=== PATIENT | female | born 1940 | race Caucasian/White ===

== ENCOUNTER 2017-05-20 08:47 | Outpatient (CLI) | payer MEDICARE ==
--- NOTE | 2017-05-20 11:09 | CT ---
CT OF THE ABDOMEN WITH AND WITHOUT IV CONTRAST: INDICATION: Adrenal mass. TECHNIQUE: Noncontrast and postcontrast images were obtained of the abdomen. The postcontrast images were obtai francisco at the 60-second time devendra and with a 15-minute delay. COMPARISON: None. FINDINGS: There is a 1.5 cm nodule involving the right adrenal gland that demonstrates an absolute washout of 7 3.4% and relative washout of 59.1% is consistent with an adrenal adenoma. The left adrenal gland is normal-appearing. There are moderate calcifications noted involving the abdominal aorta. The pancreas and spleen appea r within normal limits. The gallbladder is surgically absent. There is mild intrahepatic and extrah epatic biliary ductal dilatation. No free fluid is evident. There is scattered degenerative and osteoarthritic change. IMPRESSION: 1. The nodule involving the right adrenal gland is consistent with an adrenal adenoma based on the w ashout criteria. 2. Cholecystectomy. POS: [facility]
[2017-05-20] MEDS ORDERED: Iopamidol 370 76% 100 ML VIAL ONE (17:25)
== END 2017-05-20 08:48 | disposition home or self-care (01) ==
LOC: CT 08:47
PROVIDERS: ATTEND Family Medicine
DX: E27.9 Disorder of adrenal gland, unspecified (principal); Z90.49 Acquired absence of other specified parts of digestive tract
CPT/HCPCS: 74170

== ENCOUNTER 2017-07-15 09:18 | Outpatient (CLI) | payer MEDICARE ==
--- NOTE | 2017-07-15 11:32 | ULT ---
HEPATIC ULTRASOUND WITH DOPPLER: Date: 07/15/17 HISTORY: Hepatitis C. FINDINGS: The liver measures 16.4 cm in length. The spleen measures 9.5 cm in length. The patient is status pos t cholecystectomy. The common duct measures 9.0 mm in diameter. The liver demonstrates homogeneous echotexture without focal mass or intrahepatic ductal dilatation. Spleen and visualized portions of the pancreas are unremarkable. Flow and spectral waveforms in the h epatic, portal, and splenic vasculature are within normal limits. No free fluid is seen. IMPRESSION: No evidence of hepatic mass. POS: [facility]
== END 2017-07-15 09:19 | disposition home or self-care (01) ==
LOC: ULT 09:18
PROVIDERS: ATTEND Internal Medicine Gastroenterology
DX: B18.2 Chronic viral hepatitis C (principal)
CPT/HCPCS: 76705

== ENCOUNTER 2018-06-21 12:20 | Outpatient (CLI) | payer MEDICARE ==
--- NOTE | 2018-06-21 14:18 | CT ---
CT LUMBAR SPINE WITHOUT CONTRAST: HISTORY: Lumbar radiculopathy. Symptoms x 6 months. Worsening over the last 2 months. Low back pain radiates to both lower extremi ties. COMPARISON: None. CORRELATION: Abdomen and pelvic CT 05/20/2017. FINDINGS: Redemonstration of previously described adenoma of the right adrenal gland. Visualized solid organs are unremarkable. Atherosclerosis of a nonaneurysmal aorta. Symmetric attenuation of the psoas musc les. Bowel gas pattern is nonspecific. Normal caliber appendix. There is sclerosis involving the inferior aspect of T12, superior aspect of L1, inferior aspect of L1 , superior endplate of L2, inferior aspect of L5, and the superior aspect of S1 suggesting Modic goodman ges. Lumbar spine vertebral body height is maintained. There is no fracture. There is 2.2 mm of re trolisthesis of L1 upon L2, 2.2 mm of retrolisthesis of L2 upon L3. Limited evaluation of the contents of the central spinal canal and neural foramina due to technique. T12-L1: Broad-based disk bulge results in at least mild to moderate central canal stenosis. There d oes appear to be a right subarticular component. Mild bilateral foraminal narrowing. L1-L2: Vacuum-disk phenomenon. No high-grade central canal stenosis. Mild bilateral foraminal narr owing. L2-L3: Vacuum disk phenomenon. Generalized disk bulge results in at least mild central canal stenos is. Neural foramina are patent. L3-L4: Generalized disk bulge, ligamentum flavum thickening, and facet hypertrophy result in mild ce ntral canal stenosis. Moderate right and mild to moderate left foraminal narrowing. L4-L5: There does appear to be a component of vacuum disk phenomenon. Broad-based disk bulge, ligam entum flavum thickening, and facet hypertrophy result in moderate central canal stenosis. There is n arrowing of the left subarticular zone with presumed mass effect and obscuration of the traversing le ft L5 nerve root. Mild right and moderate left foraminal narrowing. L5-S1: There is vacuum disk phenomenon. Generalized disk bulge with at least mild central canal tien nosis. Moderate to severe right and moderate left foraminal narrowing. IMPRESSION: 1. No evidence of an acute fracture. 2. Multilevel Modic change. 3. Varying degrees of central canal stenosis and foraminal narrowing as detailed above. The greates t degree of central canal stenosis is at the L4-L5 level. Additional significant stenosis I noted at L3-L4. POS: [facility]
== END 2018-06-21 12:21 | disposition home or self-care (01) ==
LOC: BICCT 12:20
PROVIDERS: ATTEND Orthopaedic Surgery
DX: M54.16 Radiculopathy, lumbar region (principal); M48.061 Spinal stenosis, lumbar region without neurogenic claudication
CPT/HCPCS: 72131

== ENCOUNTER 2018-07-19 10:29 | Outpatient (CLI) | payer MEDICARE ==
[2018-07-19] MEDS ORDERED: Iopamidol 370 76% 100 ML VIAL ONE (11:28)
--- NOTE | 2018-07-19 13:34 | CT ---
CT ABDOMEN WITH AND WITHOUT IV CONTRAST: DATE: 07/19/2018. HISTORY: Adrenal mass. Followup evaluation. COMPARISON: 05/20/2017. FINDINGS: Cardiac pacemaking leads are again partially imaged. Dense vascular calcifications are again seen in the abdominal aorta involving the iliac arteries. There is dependent atelectasis bilaterally. Post cholecystectomy changes are again noted with evidence of intra- and extrahepatic biliary ductal dilatation likely related to reservoir effect. The liver is again at the upper limits of normal in c raniocaudal dimensions. Previously noted 1.5 cm right adrenal nodule is again seen and unchanged in size. Washout characteri stics of this right adrenal lesion are again compatible with an adrenal adenoma. An absolute washout percentage of 62.7% was obtained, and 60% or higher is consistent with an adenoma. The relative was hout is 46.5%, and washout of greater than 40% is consistent with an adenoma. The spleen, pancreas, and left adrenal gland demonstrate a normal CT appearance. Areas of mild corti lindy scarring are seen involving each kidney. No enhancing renal lesion is identified. Multiple prominent degenerative changes are seen within the visualized thoracic as well as involving the lumbar spine. Colonic diverticulosis is present with a small amount of retained fecal material in the colon. There has been no other interval change. IMPRESSION: 1. Stable right adrenal gland lesion demonstrating washout characteristics most compatible with an a drenal adenoma. 2. Post cholecystectomy changes. 3. Mild cortical scarring involving each kidney. 4. Dense atherosclerotic vascular calcifications. 5. Colonic diverticulosis. POS: [facility]
== END 2018-07-19 10:30 | disposition home or self-care (01) ==
LOC: CT 10:29
PROVIDERS: ATTEND Urology
DX: E27.9 Disorder of adrenal gland, unspecified (principal); K57.30 Diverticulosis of large intestine without perforation or abscess without bleeding; I70.8 Atherosclerosis of other arteries; N28.89 Other specified disorders of kidney and ureter; Z90.49 Acquired absence of other specified parts of digestive tract
CPT/HCPCS: 74170; 82565; Q9967

== ENCOUNTER 2020-06-21 02:26 | Inpatient (IN) | payer MEDICARE ==
[2020-06-21] MEDS ORDERED: Dexamethasone 10 MG/ML VIAL ONE (03:06)
[2020-06-21] MEDS ORDERED: cefTRIAXone\\ROCEPHIN 2 GM VIAL ONE (03:06)
[2020-06-21] MEDS ORDERED: Azithromycin 500 MG VIAL ONE (03:06)
[2020-06-21 03:49] LABS: #Eosinphils 0.1 thou/uL (0.0-0.7); #Lymphocytes 0.5 thou/uL (1.20-3.40); #Monocytes 0.4 thou/uL (0.11-0.59); #Neutrophils 3.2 thou/uL (1.40-6.50); %Basophils 0.3 % (0.0-1.0); %Eosinophils 1.2 % (0.0-10.0); %Lymphocytes 12.9 % (21.0-51.0); %Monocytes 9.1 % (0.0-10.0); %Neutrophils 76.4 % (42.0-75.0); Hemoglobin 12.3 g/dL (12.0-16.0); Mean Corpuscular HGB CONC 35.6 g/dL (32.0-36.0); Mean Corpuscular Hemoglobin 32.3 pg (27.0-31.0); Mean Corpuscular Volume 90.7 fL (78.0-98.0); Mean Platelet Volume 7.9 fL (7.4-10.4); Platelet Count 166 thou/uL (130-400); RBC Distribution Width 11.8 % (11.5-14.5); Red Blood Cell (RBC) Count 3.79 mill/uL (4.20-5.40); White Blood Cell (WBC) Count 4.2 thou/uL (4.8-10.8)
[2020-06-21 03:56] LABS: ALT (SGPT) 26 U/L (8-55); AST (SGOT) 21 U/L (5-34); Albumin 3.6 g/dL (3.4-4.8); Alkaline Phosphatase 69 U/L (40-110); Anion Gap 13 mmol/L (10-20); BUN (Urea Nitrogen) 16 mg/dL (9.8-20.1); Bilirubin, Total 0.5 mg/dL (0.2-1.2); Calc. Creatinine Clearance 0 mL/min (70-130); Calcium 8.3 mg/dL (7.8-10.44); Carbon Dioxide 25 mmol/L (23-31); Chloride 100 mmol/L (98-107); Globulin 2.7 g/dL (2.4-3.5); Glucose 115 mg/dL (83-110); Potassium 3.8 mmol/L (3.5-5.1); Protein, Total 6.3 g/dL (6.0-8.3); Sodium 134 mmol/L (136-145)
[2020-06-21 07:44] VITALS: BMI 25.3
[2020-06-21] MEDS ORDERED: Ondansetron PF 4 MG/2 ML Vial IVP PRN (09:05)
[2020-06-21] MEDS ORDERED: Ondansetron ODT 4 MG TAB PO PRN (09:05)
[2020-06-21] MEDS ORDERED: Cholecalciferol 1,000 UNITS (25 MCG) TAB PO SCH (09:15)
[2020-06-21] MEDS ORDERED: Ascorbic Acid 500 mg Chewable Tablet PO SCH (09:15)
[2020-06-21] MEDS ORDERED: Enoxaparin Sodium 40 MG/0.4 ML SYRINGE SC SCH (21:00)
[2020-06-22] MEDS: Acetaminophen 325 MG TAB PO PRN ×4 (05:39→22:55)
[2020-06-22 06:34] LABS: #Basophils 0.1 thou/uL (0.0-0.2); #Lymphocytes 0.7 thou/uL (1.20-3.40); #Monocytes 0.4 thou/uL (0.11-0.59); #Neutrophils 7.3 thou/uL (1.40-6.50); %Basophils 0.6 % (0.0-1.0); %Eosinophils 0.1 % (0.0-10.0); %Monocytes 4.7 % (0.0-10.0); %Neutrophils 86.6 % (42.0-75.0); Hemoglobin 12.2 g/dL (12.0-16.0); Mean Corpuscular HGB CONC 35.3 g/dL (32.0-36.0); Mean Corpuscular Hemoglobin 32.4 pg (27.0-31.0); Mean Corpuscular Volume 91.7 fL (78.0-98.0); Mean Platelet Volume 7.7 fL (7.4-10.4); Platelet Count 194 thou/uL (130-400); RBC Distribution Width 11.5 % (11.5-14.5); Red Blood Cell (RBC) Count 3.78 mill/uL (4.20-5.40); White Blood Cell (WBC) Count 8.5 thou/uL (4.8-10.8)
[2020-06-22 06:55] LABS: Anion Gap 12 mmol/L (10-20); BUN (Urea Nitrogen) 14 mg/dL (9.8-20.1); Calc. Creatinine Clearance 83 mL/min (70-130); Calcium 8.2 mg/dL (7.8-10.44); Carbon Dioxide 26 mmol/L (23-31); Chloride 101 mmol/L (98-107); Glucose 107 mg/dL (83-110); Potassium 3.9 mmol/L (3.5-5.1); Sodium 135 mmol/L (136-145)
[2020-06-22] MEDS ORDERED: Bisacodyl 10 MG SUPP PR PRN (07:57)
[2020-06-22] MEDS ORDERED: Loperamide HCl 2 MG CAP PO PRN (07:57)
[2020-06-22] MEDS ORDERED: HYDROcodone/Acetaminophen 5/325 mg Tablet PO PRN (07:57)
[2020-06-22] MEDS ORDERED: Loratadine 10 MG TAB PO PRN (07:57)
[2020-06-22] MEDS ORDERED: Zolpidem Tartrate 5 MG TAB PO PRN (07:57)
[2020-06-22] MEDS ORDERED: Cepastat Lozenges 1 LOZ PO PRN (07:57)
[2020-06-22] MEDS ORDERED: Calcium Carbonate 500 MG ChewTAB PO PRN (07:57)
[2020-06-22] MEDS ORDERED: Benzonatate 100 MG CAP PO PRN (07:57)
[2020-06-22] MEDS ORDERED: GUAIFENESIN SF SOLN 200 MG/10 ML UDCUP PO PRN (07:57)
[2020-06-22] MEDS ORDERED: Senokot S 8.6-50 MG TAB PO PRN (07:57)
[2020-06-22] MEDS ORDERED: hydrALAZINE 20 MG/ML VIAL SLOW IVP PRN (07:57)
[2020-06-22] MEDS ORDERED: Sodium Chloride 0.65% Nasal 44 ML BOT EA NARE PRN (07:57)
[2020-06-22] MEDS: Amlodipine 10 MG TAB PO SCH (08:47)
[2020-06-22] MEDS: Ascorbic Acid 500 mg Chewable Tablet PO SCH (08:47)
[2020-06-22] MEDS: Aspirin 81 mg Enteric Coated Tablet PO SCH (08:47)
[2020-06-22] MEDS: Cholecalciferol 1,000 UNITS (25 MCG) TAB PO SCH (08:48)
[2020-06-22] MEDS: Enoxaparin Sodium 40 MG/0.4 ML SYRINGE SC SCH (08:48)
[2020-06-22] MEDS: Dexamethasone 4 mg/ml Vial SLOW IVP SCH (08:48)
[2020-06-22] MEDS: Lisinopril 20 MG TAB PO SCH (08:48)
[2020-06-22] MEDS: PARoxetine 20 MG TAB PO SCH (08:48)
[2020-06-22] MEDS ORDERED: Lisinopril 20 MG TAB PO SCH (09:00)
[2020-06-22] MEDS: cefTRIAXone\\ROCEPHIN 1 GM in Sodium Chloride 0.9% 100 ML IVPB SCH (12:11)
[2020-06-22] MEDS: Azithromycin 500 MG in Sodium Chloride 0.9% 250 ML 250 ML IVPB SCH (12:12)
[2020-06-23] MEDS: Acetaminophen 325 MG TAB PO PRN (06:08)
[2020-06-23 06:27] LABS: #Lymphocytes 0.6 thou/uL (1.20-3.40); #Monocytes 0.4 thou/uL (0.11-0.59); %Eosinophils 0.1 % (0.0-10.0); %Lymphocytes 6.6 % (21.0-51.0); %Monocytes 3.9 % (0.0-10.0); %Neutrophils 89.5 % (42.0-75.0); Hemoglobin 11.6 g/dL (12.0-16.0); Mean Corpuscular HGB CONC 34.1 g/dL (32.0-36.0); Mean Corpuscular Hemoglobin 30.9 pg (27.0-31.0); Mean Corpuscular Volume 90.7 fL (78.0-98.0); Mean Platelet Volume 7.8 fL (7.4-10.4); Platelet Count 219 thou/uL (130-400); RBC Distribution Width 11.5 % (11.5-14.5); Red Blood Cell (RBC) Count 3.76 mill/uL (4.20-5.40); White Blood Cell (WBC) Count 8.9 thou/uL (4.8-10.8)
[2020-06-23 06:52] LABS: Anion Gap 13 mmol/L (10-20); BUN (Urea Nitrogen) 14 mg/dL (9.8-20.1); CRP (Inflammatory) 3.92 mg/dL (= or < 0.5); Calc. Creatinine Clearance 84 mL/min (70-130); Calcium 8.6 mg/dL (7.8-10.44); Carbon Dioxide 28 mmol/L (23-31); Chloride 101 mmol/L (98-107); Glucose 119 mg/dL (83-110); Potassium 3.9 mmol/L (3.5-5.1); Sodium 138 mmol/L (136-145)
[2020-06-23] MEDS: Enoxaparin Sodium 40 MG/0.4 ML SYRINGE SC SCH (07:55)
[2020-06-23] MEDS: Dexamethasone 4 mg/ml Vial SLOW IVP SCH (07:55)
[2020-06-23] MEDS: Aspirin 81 mg Enteric Coated Tablet PO SCH (07:55)
[2020-06-23] MEDS: Cholecalciferol 1,000 UNITS (25 MCG) TAB PO SCH (07:56)
[2020-06-23] MEDS: Ascorbic Acid 500 mg Chewable Tablet PO SCH (07:56)
[2020-06-23] MEDS: Lisinopril 20 MG TAB PO SCH (07:56)
[2020-06-23] MEDS: PARoxetine 20 MG TAB PO SCH (07:56)
[2020-06-23] MEDS: Amlodipine 10 MG TAB PO SCH (07:57)
[2020-06-23] MEDS: cefTRIAXone\\ROCEPHIN 1 GM in Sodium Chloride 0.9% 100 ML IVPB SCH (10:00)
[2020-06-23] MEDS: Azithromycin 500 MG in Sodium Chloride 0.9% 250 ML 250 ML IVPB SCH (10:00)
[2020-06-23 12:07] VITALS: BP 126/60; TEMP 98.9
[2020-06-24] MEDS ORDERED: Azithromycin 250 MG TAB PO SCH (09:00)
== END 2020-06-23 16:18 | disposition home or self-care (01) | DRG 177 ==
LOC: ERS 02:26 → T4-A 06:00
PROVIDERS: ADMIT Internal Medicine; ATTEND Internal Medicine
PROC: 8E0ZXY6 Isolation (ICD-10-PCS; principal; 2020-06-21)
DX: U07.1 COVID-19 (principal); J96.01 Acute respiratory failure with hypoxia; J12.82 Pneumonia due to coronavirus disease 2019; I48.91 Unspecified atrial fibrillation; F41.9 Anxiety disorder, unspecified; F32.9 Major depressive disorder, single episode, unspecified; I10 Essential (primary) hypertension; Z95.0 Presence of cardiac pacemaker; Z90.49 Acquired absence of other specified parts of digestive tract; Z79.899 Other long term (current) drug therapy; Z79.82 Long term (current) use of aspirin; Z86.19 Personal history of other infectious and parasitic diseases
CPT/HCPCS: 36415; 71045; 71275; 80048; 80053; 82728; 84484; 85025; 85379; 86140; 87040; 93005; 96365; 96366; 96367; 96375; J0456; J0696; J1100; J1650; J3490; J7050

== ENCOUNTER 2020-07-03 19:12 | Inpatient (IN) | payer MEDICARE ==
[2020-07-03 19:42] LABS: #Eosinphils 0.1 thou/uL (0.0-0.7); #Lymphocytes 1.2 thou/uL (1.20-3.40); #Monocytes 0.9 thou/uL (0.11-0.59); #Neutrophils 8.7 thou/uL (1.40-6.50); %Basophils 0.1 % (0.0-1.0); %Eosinophils 1.3 % (0.0-10.0); %Lymphocytes 10.9 % (21.0-51.0); %Monocytes 8.1 % (0.0-10.0); %Neutrophils 79.6 % (42.0-75.0); Hemoglobin 10.7 g/dL (12.0-16.0); Mean Corpuscular Hemoglobin 30.7 pg (27.0-31.0); Mean Corpuscular Volume 90.1 fL (78.0-98.0); Mean Platelet Volume 6.7 fL (7.4-10.4); Platelet Count 355 thou/uL (130-400); RBC Distribution Width 11.8 % (11.5-14.5); Red Blood Cell (RBC) Count 3.48 mill/uL (4.20-5.40)
[2020-07-03 19:55] LABS: ALT (SGPT) 14 U/L (8-55); AST (SGOT) 16 U/L (5-34); Albumin 3.3 g/dL (3.4-4.8); Alkaline Phosphatase 55 U/L (40-110); Anion Gap 14 mmol/L (10-20); BUN (Urea Nitrogen) 11 mg/dL (9.8-20.1); Bilirubin, Total 0.3 mg/dL (0.2-1.2); Calc. Creatinine Clearance 0 mL/min (70-130); Calcium 8.2 mg/dL (7.8-10.44); Carbon Dioxide 21 mmol/L (23-31); Globulin 3.2 g/dL (2.4-3.5); Glucose 98 mg/dL (83-110); Potassium 3.5 mmol/L (3.5-5.1); Protein, Total 6.5 g/dL (5.8-8.1)
--- NOTE | 2020-07-03 19:57 | RAD ---
PORTABLE CHEST: 07/03/20 INDICATIONS: Hypoxia. COMPARISON: 06/21/20. There are diffuse peripheral alveolar infiltrates which have progressed when compared to the 06/21/20 exam. There are small bilateral effusions. There are hazy infiltrates throughout both mid and lower l abdiaziz alexandra. Mild vascular engorgement. Pacemaker leads again noted. IMPRESSION: Progression of bilateral infiltrates and small bilateral effusions when compared to the prior study. POS: [facility]
[2020-07-03 19:59] LABS: Chloride 103 mmol/L (98-107); Sodium 134 mmol/L (136-145)
[2020-07-03] MEDS ORDERED: Ibuprofen 200 MG TAB ONE (20:18)
[2020-07-03] MEDS ORDERED: cefTRIAXone\\ROCEPHIN 2 GM VIAL ONE (20:18)
[2020-07-03] MEDS ORDERED: Azithromycin 500 MG VIAL ONE (20:18)
[2020-07-03] MEDS ORDERED: Dexamethasone 10 MG/ML VIAL ONE (20:18)
[2020-07-03] MEDS ORDERED: Ondansetron PF 4 MG/2 ML Vial ONE (21:59)
--- NOTE | 2020-07-03 22:20 | PDOC.HHP ---
Hospitalist HPI Shortness of breath History of Present Illness: Patient is a 79 year old female with PMH afib, pacemaker, depression, HCV (treated) who presents to ED for shortness of breath. Patient was diagnosed with COVID 3 weeks ago on 06/12, was admitted from 06/21-06/23 and did not really improve at home, reports she was short of breath today and increased o2 to 4L from 2, still low O2 and presented for further workup. here desatting on NC and placed on HFNC but now back to 6L NC. Chest x-ray shows worsening bilateral infiltra mirian. No leukocytosis. No lactic acidosis. Increasing oxygen requirement. Was given antibiotics, steroids. Will be admitted. Allergies/Adverse Reactions: Allergy/AdvReac Type Severity Reaction Status Date / Time No Known Allergies Allergy Verified 07/04/20 01:12 Home Medications: Medication Instructions Recorded Confirmed Type Amlodipine Besylate [amLODIPine 10 mg PO DAILY 05/08/14 07/04/20 History Besylate] Ascorbic Acid [Vitamin C] 500 mg PO DAILY 05/08/14 07/04/20 History Aspirin [Adult Low Dose Aspirin EC] 81 mg PO DAILY 05/08/14 07/04/20 History Fish Oil 1,000 mg PO DAILY 05/08/14 07/04/20 History Glucosamine/D3/Boswellia Elma 1 tab PO DAILY 05/08/14 07/04/20 History [Osteo Bi-Flex One Per Day] Lisinopril 40 mg PO DAILY 05/08/14 07/04/20 History PARoxetine HCl [Paxil] 20 mg PO DAILY 05/08/14 07/04/20 History Benzonatate [Tessalon] 100 mg PO Q6H PRN #30 cap 06/23/20 07/04/20 Rx Cholecalciferol [Vitamin D3] 1,000 units PO DAILY #14 tab 06/23/20 07/04/20 Rx Dexamethasone 6 mg PO DAILY #7 tablet 06/23/20 07/04/20 Rx Pantoprazole [Protonix] 40 mg PO DAILY #7 tab 06/23/20 07/04/20 Rx Past History: PMHx: HTN, HCV (treated), atrial fibrillation, pacemaker PSHx: defibrillator/pacemaker implanted due to afib which is now controlled, cholecystectomy, right shoulder and left knee surgery (not replacement). FHx: reviewed, no relevant FH Social: Patient drinks every day, less than 5 drinks per day, Alcohol history notes: beer, Patient denies drug use, Patient has no smoking history. Hospitalist HPI ROS Constitutional: reports: weakness, malaise. denies: fever, chills, sweats, other Eyes: denies: pain, vision change, conjunctivae inflammation, eyelid inflammation, redness, other ENT: denies: ear pain, ear discharge, nose pain, nose discharge, nose co ngestion, mouth pain, mouth swelling, throat pain, throat swelling, other Respiratory: reports: cough, shortness of breath. denies: dry, hemoptysis, SOB with excertion, pleuritic pain, sputum, wheezing, other Cardiovascular: denies: chest pain, palpitations, orthopnea, paroxysmal noc. dyspnea, edema, light headedness, other Gastrointestinal: reports: nausea, vomiting. denies: abdominal pain, diarrhea, constipation, melena, hematochezia, other Genitourinary: denies: dysuria, frequency, incontinence, hematuria, retention, other Musculoskeletal: denies: neck pain, shoulder pain, arm pain, back pain, hand pain, leg pain, foot pain, other Skin: denies: rash, lesions, hudson, bruising, other Neurological: denies: weakness, numbness, incoordination, change in speech, confusion, seizures, other All other systems reviewed; all pertinent +/- noted in HPI/Subj Hospitalist Exam General Appearance: NAD, awake alert Eye: PERRL, anicteric sclera ENT: normocephalic atraumatic, no oropharyngeal lesions, moist mucosa Neck: supple, symmetric, no JVD, no thyromegaly, no lymphadenopathy, no carotid bruit Heart: RRR, no murmur, no gallops, no rubs, normal peripheral pulses Respiratory: rales. negative: CTAB, no wheezes, no rales, no ronchi, normal chest expansion, no tachypnea, normal percussion, rhonchi, tachypneic, wheezes Gastrointestinal: soft, non-tender, non-distended, normal bowel sounds, no palpable masses, no hepatomegaly, no splenomegaly, no bruit Extremities: no cyanosis, no clubbing, no edema Skin: normal turgor, no lesions, no rashes Neurological: cranial nerve grossly intact, normal sensation to touch, no weakness, no focal deficits, no new deficit Musculoskeletal: normal tone, normal strength, no muscle wasting Psychiatric: normal affect, normal behavior, A&O x 3 Hospitalist Results Result Diagrams: 07/03/20 19:32 07/03/20 19:32 Lab results: Laboratory Last Values WBC 11.0 thou/uL (4.8-10.8) H 07/03/20 19: RBC 3.48 mill/uL (4.20-5.40) L 07/03/20 19: Hgb 10.7 g/dL (12.0-16.0) L 07/03/20 19: Hct 31.3 % (36.0-47.0) L 07/03/20 19: MCV 90.1 fL (78.0-98.0) 07/03/20 19: MCH 30.7 pg (27.0-31.0) 07/03/20 19: MCHC 34.0 g/dL (32.0-36.0) 07/03/20 19: RDW 11.8 % (11.5-14.5) 07/03/20 19: Plt Count 355 thou/uL (130-400) 07/03/20 19: MPV 6.7 fL (7.4-10.4) L 07/03/20 19:32 Neutrophils % 79.6 % (42.0-75.0) H 07/03/20 19: Lymphocytes % 10.9 % (21.0-51.0) L 07/03/20 19: Monocytes % 8.1 % (0.0-10.0) 07/03/20 19: Eosinophils % 1.3 % (0.0-10.0) 07/03/20 19: Basophils % 0.1 % (0.0-1.0) 07/03/20 19: Neutrophils # 8.7 thou/uL (1.40-6.50) H 07/03/20 19: Lymphocytes # 1.2 thou/uL (1.20-3.40) 07/03/20 19: Monocytes # 0.9 thou/uL (0.11-0.59) H 01/28/21 19:32 Eosinophils # 0.1 thou/uL (0.0-0.7) 07/03/20 19:32 Basophils # 0.0 thou/uL (0.0-0.2) 07/03/20 19:32 Sodium 134 mmol/L (136-145) L 07/03/20 19:32 Potassium 3.5 mmol/L (3.5-5.1) 07/03/20 19:32 Chloride 103 mmol/L (98-107) 07/03/20 19:32 Carbon Dioxide 21 mmol/L (23-31) L 07/03/20 19:32 Anion Gap 14 mmol/L (10-20) 07/03/20 19:32 BUN 11 mg/dL (9.8-20.1) 07/03/20 19:32 Creatinine 0.68 mg/dL (0.6-1.1) 07/03/20 19:32 Estimated GFR (MDRD) 84 07/03/20 19:32 Glucose 98 mg/dL (83-110) 07/03/20 19:32 Lactic Acid 0.7 mmol/L (0.5-2.2) 07/03/20 19:48 Calcium 8.2 mg/dL (7.8-10.44) 07/03/20 19:32 Total Bilirubin 0.3 mg/dL (0.2-1.2) 07/03/20 19:32 AST 16 U/L (5-34) 07/03/20 19:32 ALT 14 U/L (8-55) 07/03/20 19:32 Alkaline Phosphatase 55 U/L (40-110) 07/03/20 19:32 Troponin I 0.013 ng/mL (< 0.028) 07/03/20 19:32 Serum Total Protein 6.5 g/dL (5.8-8.1) 07/03/20 19:32 Albumin 3.3 g/dL (3.4-4.8) L 07/03/20 19:32 Globulin 3.2 g/dL (2.4-3.5) 07/03/20 19:32 Albumin/Globulin Ratio 1.0 g/dL (1.2-2.2) L 07/03/20 19:32 Additional comment: EKG 83 bpm, NSR, MI 208, QTc 465, no acute ST changes Hospitalist H&P A/P Plan: Patient is a 79 year old female with PMH afib, pacemaker, depression, HCV (treated) who presents to ED for shortness of breath. # COVID 19 pneumonia # worsening hypoxia Patient was diagnosed with COVID 3 weeks ago on 06/12, was admitted from 06/21-06/23 and did not really improve at home, reports she was short of breath today, now requiring 6L NC (on 2L assisted at home). Chest x-ray shows worsening bilateral infiltrates. No leukocytosis. No lactic acidosis. Increasing oxygen requirement. Was given antibiotics, steroids. - admit to floor - continue abx, steroids - consider pulmonary consult in AM - PT/OT # reduced PO intake - reports due to nausea, improved w/ zofran, consult dietary and add ensure # history of afib/pacemaker - resume home medications # depression - resume home meds # DVT/GI ppx
[2020-07-03] MEDS ORDERED: Electrolyte Replacement Protocol 1 EACH FS SCH (23:45)
[2020-07-03] MEDS ORDERED: Morphine 2 MG/ML VIAL SLOW IVP PRN (23:46)
[2020-07-03] MEDS ORDERED: Promethazine HCl 12.5 MG in Sodium Chloride 0.9% 50 ML IVPB PRN (23:46)
[2020-07-03] MEDS ORDERED: cloNIDine 0.1 MG TAB PO PRN (23:46)
[2020-07-03] MEDS ORDERED: Labetalol HCl 100 MG/20 ML VIAL SLOW IVP PRN (23:46)
[2020-07-03] MEDS ORDERED: Guaifenesin DM 100-10/5 ML UDCUP PO PRN (23:46)
[2020-07-03] MEDS ORDERED: hydrALAZINE 20 MG/ML VIAL SLOW IVP PRN (23:46)
[2020-07-03] MEDS ORDERED: Benzonatate 100 MG CAP PO PRN (23:48)
[2020-07-04] MEDS ORDERED: Albuterol 200 PUFF (6.7GM INHALER) INH PRN (00:20)
[2020-07-04] MEDS ORDERED: Electrolyte Replacement Protocol FS PRN (00:30)
[2020-07-04 00:33] VITALS: BMI 24.9
[2020-07-04] MEDS: HYDROcodone/Acetaminophen 5/325 mg Tablet PO PRN ×2 (01:49→11:41)
[2020-07-04 06:25] LABS: #Lymphocytes 0.5 thou/uL (1.20-3.40); #Monocytes 0.1 thou/uL (0.11-0.59); #Neutrophils 4.9 thou/uL (1.40-6.50); %Eosinophils 0.4 % (0.0-10.0); %Lymphocytes 8.4 % (21.0-51.0); %Monocytes 1.6 % (0.0-10.0); %Neutrophils 89.7 % (42.0-75.0); Hemoglobin 10.6 g/dL (12.0-16.0); Mean Corpuscular HGB CONC 33.3 g/dL (32.0-36.0); Mean Corpuscular Hemoglobin 30.2 pg (27.0-31.0); Mean Corpuscular Volume 90.6 fL (78.0-98.0); Platelet Count 386 thou/uL (130-400); RBC Distribution Width 11.8 % (11.5-14.5); Red Blood Cell (RBC) Count 3.51 mill/uL (4.20-5.40); White Blood Cell (WBC) Count 5.5 thou/uL (4.8-10.8)
[2020-07-04 06:45] LABS: Anion Gap 12 mmol/L (10-20); BUN (Urea Nitrogen) 10 mg/dL (9.8-20.1); Calc. Creatinine Clearance 78 mL/min (70-130); Calcium 8.6 mg/dL (7.8-10.44); Carbon Dioxide 25 mmol/L (23-31); Chloride 104 mmol/L (98-107); Glucose 184 mg/dL (83-110); Magnesium 1.9 mg/dL (1.6-2.6); Phosphorus 2.8 mg/dL (2.3-4.7); Potassium 4.3 mmol/L (3.5-5.1); Sodium 137 mmol/L (136-145)
[2020-07-04] MEDS ORDERED: Sodium Chloride 0.65% Nasal 44 ML BOT EA NARE PRN (08:01)
[2020-07-04] MEDS ORDERED: Senokot S 8.6-50 MG TAB PO PRN (08:01)
[2020-07-04] MEDS ORDERED: Loratadine 10 MG TAB PO PRN (08:01)
[2020-07-04] MEDS ORDERED: Cepastat Lozenges 1 LOZ PO PRN (08:01)
[2020-07-04] MEDS ORDERED: Loperamide HCl 2 MG CAP PO PRN (08:01)
[2020-07-04] MEDS ORDERED: Bisacodyl 5 MG TAB PO PRN (08:01)
[2020-07-04] MEDS ORDERED: Ascorbic Acid 500 mg Chewable Tablet PO SCH (09:00)
[2020-07-04] MEDS ORDERED: Cholecalciferol 1,000 UNITS (25 MCG) TAB PO SCH (09:00)
[2020-07-04] MEDS ORDERED: Famotidine 20 MG TAB PO SCH (09:00)
[2020-07-04] MEDS: Amlodipine 10 MG TAB PO SCH (09:01)
[2020-07-04] MEDS: Aspirin 81 mg Enteric Coated Tablet PO SCH (09:01)
[2020-07-04] MEDS: Ascorbic Acid 500 mg Chewable Tablet PO SCH (09:02)
[2020-07-04] MEDS: Fish Oil 1,000 MG CAP PO SCH (09:02)
[2020-07-04] MEDS: Cholecalciferol 1,000 UNITS (25 MCG) TAB PO SCH (09:02)
[2020-07-04] MEDS: Lisinopril 20 MG TAB PO SCH (09:02)
[2020-07-04] MEDS: PARoxetine 20 MG TAB PO SCH (09:03)
[2020-07-04] MEDS: Polyethylene Glycol 3350 17 GM Packet PO SCH (09:03)
[2020-07-04] MEDS: Zinc Sulfate 220 MG CAP PO SCH (09:03)
[2020-07-04 10:04] LABS: Legionella Urinary Ag Negative (Negative); Strep pneumo Urine Ag NEGATIVE (NEGATIVE)
--- NOTE | 2020-07-04 11:23 | PDOC.HOSPP ---
- Subjective Encounter Date: 07/04/20 Encounter Time: 09:15 Subjective: Patient seen and examined bedside today, patient reports that after discharge after Covid related pneumonia she never got better, she continued to complain of shortness of breath and she was having low-grade fever, patient is currently requiring 5 to 6 L of nasal cannula oxygen, she denies any chest pain, no sore throat or runny nose or nasal congestion, - Objective Vital Signs & Weight: Vital Signs (12 hours) Temp Pulse Resp BP Pulse Ox 07/04/20 07:37 98.1 F 89 20 124/73 94 L 07/04/20 05:41 97.8 F 88 20 147/81 H 93 L 07/04/20 00:54 93 L 07/04/20 00:15 98.2 F 89 20 147/83 H 93 L Weight Weight 163 lb 12.855 oz I&O: 07/03/20 07/04/20 07/05/20 06:59 06:59 06:59 Intake Total 300 Balance 300 Result Diagrams: 07/04/20 05:41 07/04/20 05:41 Radiology Reviewed by me: Yes (Chest x-ray reviewed) Hospitalist ROS - Review of Systems Constitutional: reports: weakness. denies: fever, chills, sweats, malaise, other Respiratory: reports: cough, shortness of breath, SOB with excertion. denies: dry, hemoptysis, pleuritic pain, sputum, wheezing, other Cardiovascular: denies: chest pain, palpitations, orthopnea, paroxysmal noc. dyspnea, edema, light headedness, other Gastrointestinal: denies: nausea, vomiting, abdominal pain, diarrhea, con stipation, melena, hematochezia, other Genitourinary: denies: dysuria, frequency, incontinence, hematuria, retention, other Musculoskeletal: denies: neck pain, shoulder pain, arm pain, back pain, hand pain, leg pain, foot pain, other Skin: denies: rash, lesions, hudson, bruising, other - Medication Medications: Active Medications Generic Name Dose Route Start Last Admin Trade Name Freq PRN Reason Stop Dose Admin Hydrocodone Bitart/Acetaminophen 1 tab 07/03/20 23:46 07/04/20 01:49 Hydrocodone/Acetaminophen 5/325 Mg Tablet PO 1 tab Q4H PRN Administration Moderate Pain (4-6) Amlodipine Besylate 10 mg 07/04/20 09:00 07/04/20 09:01 Amlodipine 10 Mg Tab PO 10 mg DAILY INGE Administration Ascorbic Acid 500 mg 07/04/20 09:00 07/04/20 09:02 Ascorbic Acid 500 Mg Chewable Tablet PO 500 mg DAILY INGE Administration Aspirin 81 mg 07/04/20 09:00 07/04/20 09:01 Aspirin 81 Mg Enteric Coated Tablet PO 81 mg DAILY INGE Administration Cholecalciferol 1,000 units 07/04/20 09:00 07/04/20 09:02 Cholecalciferol 1,000 Units (25 Mcg) Tab PO 1,000 units DAILY INGE Administration Fish Oil 1,000 mg 07/04/20 09:00 07/04/20 09:02 Fish Oil 1,000 Mg Cap PO Not Given DAILY INGE Guaifenesin/Dextromethorphan 15 ml 07/03/20 23:46 07/04/20 05:20 Guaifenesin Dm 100-10/5 Ml Udcup PO 15 ml Q4H PRN Administration Cough Lisinopril 40 mg 07/04/20 09:00 07/04/20 09:02 Lisinopril 20 Mg Tab PO 40 mg DAILY INGE Administration Pantoprazole Sodium 40 mg 07/04/20 09:00 07/04/20 09:02 Pantoprazole 40 Mg Tab PO 40 mg DAILY INGE Administration Paroxetine HCl 20 mg 07/04/20 09:00 07/04/20 09:03 Paroxetine 20 Mg Tab PO 20 mg DAILY INGE Administration Polyethylene Glycol 17 gm 07/04/20 09:00 07/04/20 09:03 Polyethylene Glycol 3350 17 Gm Packet PO 17 gm DAILY INGE Administration Zinc Sulfate 220 mg 07/04/20 09:00 07/04/20 09:03 Zinc Sulfate 220 Mg Cap PO 220 mg DAILY INGE Administration Hospitalist Exam Vitals: Vital Signs (12 hours) Temp Pulse Resp BP Pulse Ox 07/04/20 07:37 98.1 F 89 20 124/73 94 L 07/04/20 05:41 97.8 F 88 20 147/81 H 93 L 07/04/20 00:54 93 L 07/04/20 00:15 98.2 F 89 20 147/83 H 93 L Weight Weight 163 lb 12.855 oz General Appearance: NAD, awake alert Eye: PERRL, anicteric sclera ENT: normocephalic atraumatic, no oropharyngeal lesions Neck: supple, symmetric, no JVD, no thyromegaly Heart: RRR, no murmur, no gallops, no rubs Heart - other findings: Pacemaker in place Respiratory - other findings: Bibasilar rales noted Gastrointestinal: soft, non-tender, non-distended, normal bowel sounds Extremities: no cyanosis, no clubbing, no edema Skin: normal turgor, no lesions Neurological: no focal deficits Musculoskeletal: normal tone, normal strength Psychiatric: normal affect, normal behavior Hosp A/P (1) Acute on chronic diastolic heart failure Code(s): I50.33 - ACUTE ON CHRONIC DIASTOLIC (CONGESTIVE) HEART FAILURE Status: Acute Plan: This is likely scenario given bilateral pleural effusion, elevated BNP and patient has history of A. fib with a pacemaker, will continue with IV Lasix and will obtain echocardiography to assess EF and other structural abnormality (2) Pneumonia Code(s): J18.9 - PNEUMONIA, UNSPECIFIED ORGANISM Status: Suspected Qualifiers: Laterality: bilateral Lung location: lower lobe of lung Plan: Patient had recent COVID-19 infection but currently her inflammatory markers are within normal limit, she has no fever, no leukocytosis, her streptococcal and Legionella urine antigen test is negative, doubt this patient has any ongoing pneumonia but will continue empirically Rocephin and azithromycin and will consider changing to oral cefdinir. (3) Acute respiratory failure with hypoxia Code(s): J96.01 - ACUTE RESPIRATORY FAILURE WITH HYPOXIA Status: Acute Plan: Currently she is requiring 6 L nasal cannula oxygen will wean off as tolerated (4) Depression Code(s): F32.9 - MAJOR DEPRESSIVE DISORDER, SINGLE EPISODE, UNSPECIFIED Status: Acute Qualifiers: Depression Type: unspecified Qualified Code(s): F32.9 - Major depressive disorder, single episode, unspecified (5) History of atrial fibrillation Code(s): Z86.79 - PERSONAL HISTORY OF OTHER DISEASES OF THE CIRCULATORY SYSTEM Status: Chronic Plan: Patient has pacemaker in place (6) Anxiety and depression Code(s): F41.9 - ANXIETY DISORDER, UNSPECIFIED; F32.9 - MAJOR DEPRESSIVE DISORDER, SINGLE EPISODE, UNSPECIFIED Status: Chronic (7) Hypertension Code(s): I10 - ESSENTIAL (PRIMARY) HYPERTENSION Status: Chronic Qualifiers: Hypertension type: essential hypertension Qualified Code(s): I10 - Essential (primary) hypertension - Plan old records reviewed/req, continue antibiotics, respiratory therapy, DVT proph w/lovenox As mentioned above will obtain echocardiography I have done inflammatory markers and that our better than before, We will continue the Lasix We will continue with empiric antibiotic therapy We will wean off oxygen as tolerated We will monitor in hospital, I have reconciled her home medication as well. Add albuterol MDI inhaler every 6 hourly
[2020-07-04] MEDS: Furosemide 40 MG/4 ML VIAL SLOW IVP SCH (13:08)
[2020-07-04] MEDS: Albuterol 200 PUFF (6.7GM INHALER) INH SCH ×2 (13:08→18:30)
[2020-07-04] MEDS ORDERED: Furosemide 20 MG/2 ML VIAL SLOW IVP SCH (14:00)
[2020-07-04] MEDS: Ondansetron ODT 4 MG TAB PO PRN ×2 (16:30→22:16)
[2020-07-04] MEDS: Azithromycin 500 MG in Sodium Chloride 0.9% 250 ML 250 ML IVPB SCH (20:22)
[2020-07-04] MEDS: Dexamethasone 4 mg/ml Vial SLOW IVP SCH (20:23)
[2020-07-04] MEDS: Acetaminophen 325 MG TAB PO PRN (20:25)
[2020-07-04] MEDS: Enoxaparin Sodium 40 MG/0.4 ML SYRINGE SC SCH (20:25)
[2020-07-04] MEDS ORDERED: Azithromycin 500 MG in Syringe 0 ML IVPB SCH (21:00)
[2020-07-04] MEDS: cefTRIAXone\\ROCEPHIN 1 GM in Sodium Chloride 0.9% 100 ML IVPB SCH (22:16)
[2020-07-04] MEDS: Zolpidem Tartrate 5 MG TAB PO PRN (22:35)
[2020-07-05] MEDS: Albuterol 200 PUFF (6.7GM INHALER) INH SCH ×4 (00:08→19:44)
[2020-07-05] MEDS: Furosemide 40 MG/4 ML VIAL SLOW IVP SCH ×2 (05:48→13:09)
[2020-07-05 06:05] LABS: #Lymphocytes 0.8 thou/uL (1.20-3.40); #Monocytes 0.3 thou/uL (0.11-0.59); #Neutrophils 11.8 thou/uL (1.40-6.50); %Basophils 0.1 % (0.0-1.0); %Eosinophils 0.1 % (0.0-10.0); %Lymphocytes 5.9 % (21.0-51.0); %Monocytes 2.7 % (0.0-10.0); %Neutrophils 91.3 % (42.0-75.0); Hemoglobin 9.9 g/dL (12.0-16.0); Mean Corpuscular HGB CONC 33.5 g/dL (32.0-36.0); Mean Corpuscular Hemoglobin 30.3 pg (27.0-31.0); Mean Corpuscular Volume 90.5 fL (78.0-98.0); Mean Platelet Volume 6.9 fL (7.4-10.4); Platelet Count 385 thou/uL (130-400); RBC Distribution Width 11.9 % (11.5-14.5); Red Blood Cell (RBC) Count 3.27 mill/uL (4.20-5.40); White Blood Cell (WBC) Count 12.9 thou/uL (4.8-10.8)
[2020-07-05 06:23] LABS: Anion Gap 12 mmol/L (10-20); BUN (Urea Nitrogen) 12 mg/dL (9.8-20.1); Calc. Creatinine Clearance 79 mL/min (70-130); Calcium 8.5 mg/dL (7.8-10.44); Carbon Dioxide 26 mmol/L (23-31); Chloride 103 mmol/L (98-107); Glucose 173 mg/dL (83-110); Potassium 4.2 mmol/L (3.5-5.1); Sodium 137 mmol/L (136-145)
[2020-07-05] MEDS: Polyethylene Glycol 3350 17 GM Packet PO SCH (08:29)
[2020-07-05] MEDS: Zinc Sulfate 220 MG CAP PO SCH (08:29)
[2020-07-05] MEDS: Aspirin 81 mg Enteric Coated Tablet PO SCH (08:30)
[2020-07-05] MEDS: Ascorbic Acid 500 mg Chewable Tablet PO SCH (08:30)
[2020-07-05] MEDS: Lisinopril 20 MG TAB PO SCH (08:30)
[2020-07-05] MEDS: Amlodipine 10 MG TAB PO SCH (08:30)
[2020-07-05] MEDS: Fish Oil 1,000 MG CAP PO SCH (08:30)
[2020-07-05] MEDS: Cholecalciferol 1,000 UNITS (25 MCG) TAB PO SCH (08:31)
[2020-07-05] MEDS: PARoxetine 20 MG TAB PO SCH (08:31)
--- NOTE | 2020-07-05 09:58 | PDOC.HOSPP ---
- Subjective Encounter Date: 07/05/20 Encounter Time: 08:50 Subjective: Patient seen and examined. No new complaints. No overnight events, patient has cough, she feels little bit better than yesterday, - Objective Vital Signs & Weight: Vital Signs (12 hours) Temp Pulse Resp BP BP Pulse Ox 07/05/20 08:30 92 145/72 H 07/05/20 07:46 98 F 92 20 145/72 H 92 L 07/05/20 06:03 97.8 F 93 18 135/80 92 L 07/05/20 00:00 98.2 F 93 18 119/67 93 L Weight Admit Weight 163 lb 12.8 oz Weight 163 lb 12.855 oz I&O: 07/04/20 07/05/20 07/06/20 06:59 06:59 06:59 Intake Total 300 580 Balance 300 580 Result Diagrams: 07/05/20 05:33 07/05/20 05:33 Hospitalist ROS - Review of Systems Constitutional: denies: fever, chills, sweats, weakness, malaise, other Eyes: denies: pain, vision change, conjunctivae inflammation, eyelid inflammation, redness, other ENT: denies: ear pain, ear discharge, nose pain, nose discharge, nose c ongestion, mouth pain, mouth swelling, throat pain, throat swelling, other Respiratory: reports: cough, shortness of breath, SOB with excertion. denies: dry, hemoptysis, pleuritic pain, sputum, wheezing, other Cardiovascular: denies: chest pain, palpitations, orthopnea, paroxysmal noc. dyspnea, edema, light headedness, other Gastrointestinal: denies: nausea, vomiting, abdominal pain, diarrhea, constipation, melena, hematochezia, other Genitourinary: denies: dysuria, frequency, incontinence, hematuria, retention, other Musculoskeletal: denies: neck pain, shoulder pain, arm pain, back pain, hand pain, leg pain, foot pain, other Skin: denies: rash, lesions, hudson, bruising, other - Medication Medications: Active Medications Generic Name Dose Route Start Last Admin Trade Name Freq PRN Reason Stop Dose Admin Acetaminophen 650 mg 07/03/20 23:46 07/04/20 20:25 Acetaminophen 325 Mg Tab PO 650 mg Q4H PRN Administration Headache/Fever/Mild Pain (1-3) Hydrocodone Bitart/Acetaminophen 1 tab 07/03/20 23:46 07/04/20 11:41 Hydrocodone/Acetaminophen 5/325 Mg Tablet PO 1 tab Q4H PRN Administration Moderate Pain (4-6) Albuterol Sulfate 2 puff 07/04/20 13:00 07/05/20 06:03 Albuterol 200 Puff (6.7gm Inhaler) INH 2 puff [id number] INGE Administration Amlodipine Besylate 10 mg 07/04/20 09:00 07/05/20 08:30 Amlodipine 10 Mg Tab PO 10 mg DAILY [facility] Administration Ascorbic Acid 500 mg 07/04/20 09:00 07/05/20 08:30 Ascorbic Acid 500 Mg Chewable Tablet PO 500 mg DAILY [facility] Administration Aspirin 81 mg 07/04/20 09:00 07/05/20 08:30 Aspirin 81 Mg Enteric Coated Tablet PO 81 mg DAILY [facility] Administration Cholecalciferol 1,000 units 07/04/20 09:00 07/05/20 08:31 Cholecalciferol 1,000 Units (25 Mcg) Tab PO 1,000 units DAILY [facility] Administration Dexamethasone 6 mg 07/04/20 21:00 07/04/20 20:23 Dexamethasone 4 Mg/Ml Vial SLOW IVP 6 mg HS INGE Administration Enoxaparin Sodium 40 mg 07/04/20 21:00 07/04/20 20:25 Enoxaparin Sodium 40 Mg/0.4 Ml Syringe SC 40 mg 2100 IN[facility] Administration Fish Oil 1,000 mg 07/04/20 09:00 07/05/20 08:30 Fish Oil 1,000 Mg Cap PO 1,000 mg DAILY [facility] Administration Furosemide 40 mg 07/04/20 14:00 07/05/20 05:48 Furosemide 40 Mg/4 Ml Vial SLOW IVP 40 mg 0600,1400 IN[facility] Administration Guaifenesin/Dextromethorphan 15 ml 07/03/20 23:46 07/04/20 05:20 Guaifenesin Dm 100-10/5 Ml Udcup PO 15 ml Q4H PRN Administration Cough Ceftriaxone Sodium 1 gm/ 100 mls @ 200 mls/hr 07/04/20 21:00 07/04/20 22:16 Sodium Chloride IVPB 100 mls HS INGE Administration Azithromycin 500 mg/ Sodium 250 mls @ 250 mls/hr 07/04/20 20:00 07/04/20 20:22 Chloride IVPB 250 mls 2000 INGE Administration Lisinopril 40 mg 07/04/20 09:00 07/05/20 08:30 Lisinopril 20 Mg Tab PO 40 mg DAILY [facility] Administration Ondansetron HCl 4 mg 07/04/20 08:01 07/04/20 22:16 Ondansetron Odt 4 Mg Tab PO 4 mg Q6H PRN Administration Nausea/Vomiting Pantoprazole Sodium 40 mg 07/04/20 09:00 07/05/20 08:31 Pantoprazole 40 Mg Tab PO 40 mg DAILY IN[facility] Administration Paroxetine HCl 20 mg 07/04/20 09:00 07/05/20 08:31 Paroxetine 20 Mg Tab PO 20 mg DAILY IN[facility] Administration Polyethylene Glycol 17 gm 07/04/20 09:00 07/05/20 08:29 Polyethylene Glycol 3350 17 Gm Packet PO 17 gm DAILY [facility] Administration Zinc Sulfate 220 mg 07/04/20 09:00 07/05/20 08:29 Zinc Sulfate 220 Mg Cap PO 220 mg DAILY IN[facility] Administration Zolpidem Tartrate 5 mg 07/04/20 08:01 07/04/20 22:35 Zolpidem Tartrate 5 Mg Tab PO 5 mg HSPRN PRN Administration Insomnia Hospitalist Exam Vitals: Vital Signs (12 hours) Temp Pulse Resp BP BP Pulse Ox 07/05/20 08:30 92 145/72 H 07/05/20 07:46 98 F 92 20 145/72 H 92 L 07/05/20 06:03 97.8 F 93 18 135/80 92 L 07/05/20 00:00 98.2 F 93 18 119/67 93 L Weight Admit Weight 163 lb 12.8 oz Weight 163 lb 12.855 oz General Appearance: NAD, awake alert Eye: PERRL, anicteric sclera ENT: normocephalic atraumatic, no oropharyngeal lesions Neck: supple, symmetric, no JVD, no thyromegaly Heart: RRR, no gallops, no rubs Respiratory: no wheezes, no ronchi Respiratory - other findings: Few basilar rales noted Gastrointestinal: soft, non-tender, non-distended, normal bowel sounds Extremities: no cyanosis, no clubbing, no edema Skin: normal turgor, no lesions Neurological: no focal deficits Musculoskeletal: normal tone, normal strength, no muscle wasting Psychiatric: normal affect, normal behavior Hosp A/P (1) Acute on chronic diastolic heart failure Code(s): I50.33 - ACUTE ON CHRONIC DIASTOLIC (CONGESTIVE) HEART FAILURE Status: Acute (2) Pneumonia Code(s): J18.9 - PNEUMONIA, UNSPECIFIED ORGANISM Status: Suspected Qualifiers: Laterality: bilateral Lung location: lower lobe of lung (3) Acute respiratory failure with hypoxia Code(s): J96.01 - ACUTE RESPIRATORY FAILURE WITH HYPOXIA Status: Acute (4) Depression Code(s): F32.9 - MAJOR DEPRESSIVE DISORDER, SINGLE EPISODE, UNSPECIFIED Status: Acute Qualifiers: Depression Type: unspecified Qualified Code(s): F32.9 - Major depressive disorder, single episode, unspecified (5) History of atrial fibrillation Code(s): Z86.79 - PERSONAL HISTORY OF OTHER DISEASES OF THE CIRCULATORY SYSTEM Status: Chronic (6) Anxiety and depression Code(s): F41.9 - ANXIETY DISORDER, UNSPECIFIED; F32.9 - MAJOR DEPRESSIVE DISORDER, SINGLE EPISODE, UNSPECIFIED Status: Chronic (7) Hypertension Code(s): I10 - ESSENTIAL (PRIMARY) HYPERTENSION Status: Chronic Qualifiers: Hypertension type: essential hypertension Qualified Code(s): I10 - Essential (primary) hypertension - Plan old records reviewed/req, continue antibiotics, respiratory therapy, DVT proph w/lovenox Continue IV Lasix Continue empiric antibiotic therapy Echocardiography pending Patient has clinical improvement Medication reviewed and continue provide symptomatic and supportive care Currently patient is on dexamethasone Patient requesting to change diet to regular diet
[2020-07-05] MEDS ORDERED: Magnesium 2 GM/50 ML 2 GM in Premix Bag 1 BAG IVPB SCH (12:00)
[2020-07-05 17:00] LABS: Troponin I Less than 0.010 ng/mL (< 0.028)
[2020-07-05] MEDS: Calcium Carbonate 500 MG ChewTAB PO PRN ×2 (17:16→22:22)
[2020-07-05] MEDS: Azithromycin 500 MG in Sodium Chloride 0.9% 250 ML 250 ML IVPB SCH (19:44)
[2020-07-05] MEDS: Dexamethasone 4 mg/ml Vial SLOW IVP SCH (19:44)
[2020-07-05] MEDS: Enoxaparin Sodium 40 MG/0.4 ML SYRINGE SC SCH (19:45)
[2020-07-05] MEDS: cefTRIAXone\\ROCEPHIN 1 GM in Sodium Chloride 0.9% 100 ML IVPB SCH (19:45)
[2020-07-05] MEDS: Acetaminophen 325 MG TAB PO PRN (19:46)
[2020-07-05 20:39] LABS: Troponin I Less than 0.010 ng/mL (< 0.028)
[2020-07-05] MEDS: Zolpidem Tartrate 5 MG TAB PO PRN (22:22)
[2020-07-06 00:46] LABS: Troponin I 0.015 ng/mL (< 0.028)
[2020-07-06] MEDS: Albuterol 200 PUFF (6.7GM INHALER) INH SCH ×4 (01:06→20:21)
[2020-07-06] MEDS: Furosemide 40 MG/4 ML VIAL SLOW IVP SCH ×2 (05:36→15:07)
[2020-07-06] MEDS: Ascorbic Acid 500 mg Chewable Tablet PO SCH (07:57)
[2020-07-06] MEDS: Amlodipine 10 MG TAB PO SCH (07:57)
[2020-07-06] MEDS: Zinc Sulfate 220 MG CAP PO SCH (07:57)
[2020-07-06] MEDS: PARoxetine 20 MG TAB PO SCH (07:58)
[2020-07-06] MEDS: Lisinopril 20 MG TAB PO SCH (07:58)
[2020-07-06] MEDS: Fish Oil 1,000 MG CAP PO SCH (07:58)
[2020-07-06] MEDS: Cholecalciferol 1,000 UNITS (25 MCG) TAB PO SCH (07:58)
[2020-07-06] MEDS: Aspirin 81 mg Enteric Coated Tablet PO SCH (07:58)
[2020-07-06] MEDS: Polyethylene Glycol 3350 17 GM Packet PO SCH (07:59)
[2020-07-06 08:06] LABS: #Lymphocytes 0.6 thou/uL (1.20-3.40); #Monocytes 0.3 thou/uL (0.11-0.59); #Neutrophils 7.1 thou/uL (1.40-6.50); %Eosinophils 0.3 % (0.0-10.0); %Lymphocytes 7.4 % (21.0-51.0); %Monocytes 4.1 % (0.0-10.0); %Neutrophils 88.2 % (42.0-75.0); Hemoglobin 10.2 g/dL (12.0-16.0); Mean Corpuscular HGB CONC 34.5 g/dL (32.0-36.0); Mean Corpuscular Hemoglobin 31.7 pg (27.0-31.0); Mean Corpuscular Volume 91.8 fL (78.0-98.0); Platelet Count 374 thou/uL (130-400); RBC Distribution Width 11.9 % (11.5-14.5); Red Blood Cell (RBC) Count 3.23 mill/uL (4.20-5.40); White Blood Cell (WBC) Count 8.1 thou/uL (4.8-10.8)
[2020-07-06 08:26] LABS: Anion Gap 13 mmol/L (10-20); BUN (Urea Nitrogen) 14 mg/dL (9.8-20.1); Calc. Creatinine Clearance 79 mL/min (70-130); Calcium 8.4 mg/dL (7.8-10.44); Carbon Dioxide 29 mmol/L (23-31); Chloride 98 mmol/L (98-107); Glucose 195 mg/dL (83-110); Magnesium 2.2 mg/dL (1.6-2.6); Potassium 3.9 mmol/L (3.5-5.1); Sodium 136 mmol/L (136-145)
--- NOTE | 2020-07-06 09:56 | PDOC.HOSPP ---
- Subjective Encounter Date: 07/06/20 Encounter Time: 08:50 Subjective: Patient had subjective fever and after Tylenol she had sweating, she is still on 5 L nasal cannula oxygen, - Objective Vital Signs & Weight: Vital Signs (12 hours) Temp Pulse Resp BP BP Pulse Ox 07/06/20 07:58 133/77 07/06/20 07:57 98 133/77 07/06/20 07:39 98.4 F 98 18 133/77 90 L Weight Admit Weight 163 lb 12.8 oz Weight 163 lb 12.855 oz I&O: 07/05/20 07/06/20 07/07/20 06:59 06:59 06:59 Intake Total 580 530 Balance 580 530 Result Diagrams: 07/06/20 07:15 07/06/20 07:15 Hospitalist ROS - Review of Systems ENT: denies: ear pain, ear discharge, nose pain, nose discharge, nose congestion, mouth pain, mouth swelling, throat pain, throat swelling, other Respiratory: denies: cough, dry, shortness of breath, hemoptysis, SOB with excertion, pleuritic pain, sputum, wheezing, other Cardiovascular: denies: chest pain, palpitations, orthopnea, paroxysmal noc. dyspnea, edema, light headedness, other Gastrointestinal: denies: nausea, vomiting, abdominal pain, diarrhea, constipation, melena, hematochezia, other Genitourinary: denies: dysuria, frequency, incontinence, hematuria, retention, other Musculoskeletal: denies: neck pain, shoulder pain, arm pain, back pain, hand pain, leg pain, foot pain, other - Medication Medications: Active Medications Generic Name Dose Route Start Last Admin Trade Name Freq PRN Reason Stop Dose Admin Acetaminophen 650 mg 07/03/20 23:46 07/05/20 19:46 Acetaminophen 325 Mg Tab PO 650 mg Q4H PRN Administration Headache/Fever/Mild Pain (1-3) Hydrocodone Bitart/Acetaminophen 1 tab 07/03/20 23:46 07/04/20 11:41 Hydrocodone/Acetaminophen 5/325 Mg Tablet PO 1 tab Q4H PRN Administration Moderate Pain (4-6) Albuterol Sulfate 2 puff 07/04/20 13:00 07/06/20 07:56 Albuterol 200 Puff (6.7gm Inhaler) INH 2 puff [id number] INGE Administration Amlodipine Besylate 10 mg 07/04/20 09:00 07/06/20 07:57 Amlodipine 10 Mg Tab PO 10 mg DAILY INGE Administration Ascorbic Acid 500 mg 07/04/20 09:00 07/06/20 07:57 Ascorbic Acid 500 Mg Chewable Tablet PO 500 mg DAILY INGE Administration Aspirin 81 mg 07/04/20 09:00 07/06/20 07:58 Aspirin 81 Mg Enteric Coated Tablet PO 81 mg DAILY INGE Administration Calcium Carbonate 1,000 mg 07/04/20 08:01 07/05/20 22:22 Calcium Carbonate 500 Mg Chewtab PO 1,000 mg Q4H PRN Administration Heartburn or Indigestion Cholecalciferol 1,000 units 07/04/20 09:00 07/06/20 07:58 Cholecalciferol 1,000 Units (25 Mcg) Tab PO 1,000 units DAILY INGE Administration Dexamethasone 6 mg 07/04/20 21:00 07/05/20 19:44 Dexamethasone 4 Mg/Ml Vial SLOW IVP 6 mg HS INGE Administration Enoxaparin Sodium 40 mg 07/04/20 21:00 07/05/20 19:45 Enoxaparin Sodium 40 Mg/0.4 Ml Syringe SC 40 mg 2100 INGE Administration Fish Oil 1,000 mg 07/04/20 09:00 07/06/20 07:58 Fish Oil 1,000 Mg Cap PO Not Given DAILY [facility] Furosemide 40 mg 07/04/20 14:00 07/06/20 05:36 Furosemide 40 Mg/4 Ml Vial SLOW IVP 40 mg 0600,1400 INGE Administration Guaifenesin/Dextromethorphan 15 ml 07/03/20 23:46 07/04/20 05:20 Guaifenesin Dm 100-10/5 Ml Udcup PO 15 ml Q4H PRN Administration Cough Ceftriaxone Sodium 1 gm/ 100 mls @ 200 mls/hr 07/04/20 21:00 07/05/20 19:45 Sodium Chloride IVPB 100 mls HS INGE Administration Azithromycin 500 mg/ Sodium 250 mls @ 250 mls/hr 07/04/20 20:00 07/05/20 19:44 Chloride IVPB 250 mls 2000 INGE Administration Lisinopril 40 mg 07/04/20 09:00 07/06/20 07:58 Lisinopril 20 Mg Tab PO 40 mg DAILY INGE Administration Ondansetron HCl 4 mg 07/04/20 08:01 07/04/20 22:16 Ondansetron Odt 4 Mg Tab PO 4 mg Q6H PRN Administration Nausea/Vomiting Pantoprazole Sodium 40 mg 07/04/20 09:00 07/06/20 07:57 Pantoprazole 40 Mg Tab PO 40 mg DAILY INGE Administration Paroxetine HCl 20 mg 07/04/20 09:00 07/06/20 07:58 Paroxetine 20 Mg Tab PO 20 mg DAILY INGE Administration Polyethylene Glycol 17 gm 07/04/20 09:00 07/06/20 07:59 Polyethylene Glycol 3350 17 Gm Packet PO 17 gm DAILY INGE Administration Zinc Sulfate 220 mg 07/04/20 09:00 07/06/20 07:57 Zinc Sulfate 220 Mg Cap PO 220 mg DAILY INGE Administration Zolpidem Tartrate 5 mg 07/04/20 08:01 07/05/20 22:22 Zolpidem Tartrate 5 Mg Tab PO 5 mg HSPRN PRN Administration Insomnia Hospitalist Exam Vitals: Vital Signs (12 hours) Temp Pulse Resp BP BP Pulse Ox 07/06/20 07:58 133/77 07/06/20 07:57 98 133/77 07/06/20 07:39 98.4 F 98 18 133/77 90 L Weight Admit Weight 163 lb 12.8 oz Weight 163 lb 12.855 oz General Appearance: NAD, awake alert Eye: PERRL, anicteric sclera ENT: normocephalic atraumatic, no oropharyngeal lesions Neck: supple, symmetric, no JVD, no thyromegaly Heart: no murmur, no gallops, no rubs Respiratory: no wheezes, no ronchi Respiratory - other findings: Coarse breath sound at base, Gastrointestinal: soft, non-tender, non-distended, normal bowel sounds Extremities: no cyanosis, no clubbing, no edema Skin: normal turgor, no lesions Neurological: no focal deficits Musculoskeletal: normal tone, normal strength Psychiatric: normal affect, normal behavior Hosp A/P (1) Acute on chronic diastolic heart failure Code(s): I50.33 - ACUTE ON CHRONIC DIASTOLIC (CONGESTIVE) HEART FAILURE Status: Acute (2) Pneumonia Code(s): J18.9 - PNEUMONIA, UNSPECIFIED ORGANISM Status: Suspected Qualifiers: Laterality: bilateral Lung location: lower lobe of lung (3) Acute respiratory failure with hypoxia Code(s): J96.01 - ACUTE RESPIRATORY FAILURE WITH HYPOXIA Status: Acute (4) Depression Code(s): F32.9 - MAJOR DEPRESSIVE DISORDER, SINGLE EPISODE, UNSPECIFIED Status: Acute Qualifiers: Depression Type: unspecified Qualified Code(s): F32.9 - Major depressive disorder, single episode, unspecified (5) History of atrial fibrillation Code(s): Z86.79 - PERSONAL HISTORY OF OTHER DISEASES OF THE CIRCULATORY SYSTEM Status: Chronic (6) Anxiety and depression Code(s): F41.9 - ANXIETY DISORDER, UNSPECIFIED; F32.9 - MAJOR DEPRESSIVE DI SORDER, SINGLE EPISODE, UNSPECIFIED Status: Chronic (7) Hypertension Code(s): I10 - ESSENTIAL (PRIMARY) HYPERTENSION Status: Chronic Qualifiers: Hypertension type: essential hypertension Qualified Code(s): I10 - Essential (primary) hypertension - Plan old records reviewed/req, continue antibiotics, respiratory therapy, DVT proph w/lovenox Continue IV Lasix Continue empiric antibiotic therapy Echocardiography pending not done because of Covid positivity of the patient Patient has clinical improvement Medication reviewed and continue provide symptomatic and supportive care Currently patient is on dexamethasone Tomorrow we will repeat chest x-ray Patient is requesting retirement evaluation, will consult case management
[2020-07-06] MEDS: Acetaminophen 325 MG TAB PO PRN ×2 (11:32→17:42)
[2020-07-06] MEDS: Calcium Carbonate 500 MG ChewTAB PO PRN ×3 (11:32→20:36)
[2020-07-06] MEDS: Enoxaparin Sodium 40 MG/0.4 ML SYRINGE SC SCH (19:00)
[2020-07-06] MEDS: Dexamethasone 4 mg/ml Vial SLOW IVP SCH (20:19)
[2020-07-06] MEDS: cefTRIAXone\\ROCEPHIN 1 GM in Sodium Chloride 0.9% 100 ML IVPB SCH (20:20)
[2020-07-06] MEDS: Azithromycin 500 MG in Sodium Chloride 0.9% 250 ML 250 ML IVPB SCH (20:20)
[2020-07-06] MEDS: Zolpidem Tartrate 5 MG TAB PO PRN (20:36)
[2020-07-07] MEDS: Albuterol 200 PUFF (6.7GM INHALER) INH SCH ×4 (00:35→17:45)
[2020-07-07] MEDS: Furosemide 40 MG/4 ML VIAL SLOW IVP SCH (05:39)
[2020-07-07] MEDS: Aspirin 81 mg Enteric Coated Tablet PO SCH (07:36)
[2020-07-07] MEDS: Polyethylene Glycol 3350 17 GM Packet PO SCH (07:36)
[2020-07-07] MEDS: Lisinopril 20 MG TAB PO SCH (07:37)
[2020-07-07] MEDS: Fish Oil 1,000 MG CAP PO SCH ×2 (07:37→07:48)
[2020-07-07] MEDS: PARoxetine 20 MG TAB PO SCH (07:37)
[2020-07-07] MEDS: Ascorbic Acid 500 mg Chewable Tablet PO SCH (07:37)
[2020-07-07] MEDS: Amlodipine 10 MG TAB PO SCH (07:37)
[2020-07-07] MEDS: Cholecalciferol 1,000 UNITS (25 MCG) TAB PO SCH (07:37)
[2020-07-07] MEDS: Zinc Sulfate 220 MG CAP PO SCH (07:38)
--- NOTE | 2020-07-07 09:09 | RAD ---
RADIOGRAPH CHEST 1 VIEW: DATE: 07/07/2020 TIME: 8:56 AM HISTORY: Follow-up COVID 19 pneumonia in 79-year-old female COMPARISON: 07/03/2020 FINDINGS: Moderate to severe bilateral heterogeneously distributed mostly alveolar infiltrates. Pacemaker. Blunting of lateral costophrenic angles bilaterally. No pneumothorax. Probably no significant interval change, allowing for technical differences. IMPRESSION: No definite interval change in the moderately severe bilateral infiltrates: Evidence for COVID 19 pne umonia
[2020-07-07] MEDS: Doxycycline 100 MG CAP PO SCH ×2 (09:42→20:32)
[2020-07-07] MEDS: Calcium Carbonate 500 MG ChewTAB PO PRN ×2 (09:42→20:38)
--- NOTE | 2020-07-07 10:53 | PDOC.HOSPP ---
- Subjective Encounter Date: 07/07/20 Encounter Time: 08:30 Subjective: Patient seen and examined. No new complaints. No overnight events, patient is on 5 L nasal cannula oxygen, - Objective Vital Signs & Weight: Vital Signs (12 hours) Temp Pulse Resp BP BP Pulse Ox 07/07/20 08:26 96 07/07/20 07:37 86 153/77 H 07/07/20 07:00 98.1 F 76 20 153/77 H 97 07/07/20 04:57 98.1 F 86 18 147/78 H 97 07/07/20 04:00 97.9 F 62 20 95/55 L 93 L Weight Admit Weight 163 lb 12.8 oz Weight 163 lb 12.855 oz I&O: 07/06/20 07/07/20 07/08/20 06:59 06:59 06:59 Intake Total 530 720 Balance 530 720 Result Diagrams: 07/06/20 07:15 07/06/20 07:15 Radiology Reviewed by me: Yes (Chest x-ray suggestive of Covid pneumonia) Hospitalist ROS - Review of Systems Eyes: denies: pain, vision change, conjunctivae inflammation, eyelid inflammation, redness, other ENT: denies: ear pain, ear discharge, nose pain, nose discharge, nose congestion, mouth pain, mouth swelling, throat pain, throat swelling, other Respiratory: reports: shortness of breath, SOB with excertion. denies: cough, dry, hemoptysis, pleuritic pain, sputum, wheezing, other Cardiovascular: denies: chest pain, palpitations, orthopnea, paroxysmal noc. dyspnea, edema, light headedness, other Gastrointestinal: denies: nausea, vomiting, abdominal pain, diarrhea, constipation, melena, hematochezia, other Genitourinary: denies: dysuria, frequency, incontinence, hematuria, retention, other Musculoskeletal: denies: neck pain, shoulder pain, arm pain, back pain, hand pain, leg pain, foot pain, other - Medication Medications: Active Medications Generic Name Dose Route Start Last Admin Trade Name Freq PRN Reason Stop Dose Admin Acetaminophen 650 mg 07/03/20 23:46 07/06/20 17:42 Acetaminophen 325 Mg Tab PO 650 mg Q4H PRN Administration Headache/Fever/Mild Pain (1-3) Hydrocodone Bitart/Acetaminophen 1 tab 07/03/20 23:46 07/04/20 11:41 Hydrocodone/Acetaminophen 5/325 Mg Tablet PO 1 tab Q4H PRN Administration Moderate Pain (4-6) Albuterol Sulfate 2 puff 07/04/20 13:00 07/07/20 07:36 Albuterol 200 Puff (6.7gm Inhaler) INH 2 puff [id number] INGE Administration Amlodipine Besylate 10 mg 07/04/20 09:00 07/07/20 07:37 Amlodipine 10 Mg Tab PO 10 mg DAILY [facility] Administration Ascorbic Acid 500 mg 07/04/20 09:00 07/07/20 07:37 Ascorbic Acid 500 Mg Chewable Tablet PO 500 mg DAILY [facility] Administration Aspirin 81 mg 07/04/20 09:00 07/07/20 07:36 Aspirin 81 Mg Enteric Coated Tablet PO 81 mg DAILY [facility] Administration Calcium Carbonate 1,000 mg 07/04/20 08:01 07/07/20 09:42 Calcium Carbonate 500 Mg Chewtab PO 1,000 mg Q4H PRN Administration Heartburn or Indigestion Cholecalciferol 1,000 units 07/04/20 09:00 07/07/20 07:37 Cholecalciferol 1,000 Units (25 Mcg) Tab PO 1,000 units DAILY [facility] Administration Doxycycline Hyclate 100 mg 07/07/20 09:00 07/07/20 09:42 Doxycycline 100 Mg Cap PO 100 mg BID [facility] Administration Enoxaparin Sodium 40 mg 07/04/20 21:00 07/06/20 19:00 Enoxaparin Sodium 40 Mg/0.4 Ml Syringe SC Not Given 2100 [facility] Fish Oil 1,000 mg 07/04/20 09:00 07/07/20 07:48 Fish Oil 1,000 Mg Cap PO Not Given DAILY [facility] Guaifenesin/Dextromethorphan 15 ml 07/03/20 23:46 07/04/20 05:20 Guaifenesin Dm 100-10/5 Ml Udcup PO 15 ml Q4H PRN Administration Cough Lisinopril 40 mg 07/04/20 09:00 07/07/20 07:37 Lisinopril 20 Mg Tab PO 40 mg DAILY [facility] Administration Ondansetron HCl 4 mg 07/04/20 08:01 07/04/20 22:16 Ondansetron Odt 4 Mg Tab PO 4 mg Q6H PRN Administration Nausea/Vomiting Pantoprazole Sodium 40 mg 07/04/20 09:00 07/07/20 07:37 Pantoprazole 40 Mg Tab PO 40 mg DAILY INGE Administration Paroxetine HCl 20 mg 07/04/20 09:00 07/07/20 07:37 Paroxetine 20 Mg Tab PO 20 mg DAILY INGE Administration Polyethylene Glycol 17 gm 07/04/20 09:00 07/07/20 07:36 Polyethylene Glycol 3350 17 Gm Packet PO 17 gm DAILY INGE Administration Zinc Sulfate 220 mg 07/04/20 09:00 07/07/20 07:38 Zinc Sulfate 220 Mg Cap PO 220 mg DAILY INGE Administration Zolpidem Tartrate 5 mg 07/04/20 08:01 07/06/20 20:36 Zolpidem Tartrate 5 Mg Tab PO 5 mg HSPRN PRN Administration Insomnia Hospitalist Exam Vitals: Vital Signs (12 hours) Temp Pulse Resp BP BP Pulse Ox 07/07/20 08:26 96 07/07/20 07:37 86 153/77 H 07/07/20 07:00 98.1 F 76 20 153/77 H 97 07/07/20 04:57 98.1 F 86 18 147/78 H 97 07/07/20 04:00 97.9 F 62 20 95/55 L 93 L Weight Admit Weight 163 lb 12.8 oz Weight 163 lb 12.855 oz General Appearance: NAD, awake alert Eye: PERRL, anicteric sclera ENT: normocephalic atraumatic, no oropharyngeal lesions Neck: supple, symmetric, no JVD, no thyromegaly Heart: RRR, no murmur, no gallops, no rubs Respiratory: no wheezes, no rales, no ronchi Gastrointestinal: soft, non-tender, non-distended, normal bowel sounds Extremities: no cyanosis, no clubbing, no edema Skin: normal turgor, no lesions Neurological: no focal deficits Musculoskeletal: normal tone, normal strength Psychiatric: normal affect, normal behavior Hosp A/P (1) Pneumonia Code(s): J18.9 - PNEUMONIA, UNSPECIFIED ORGANISM Status: Acute Qualifiers: Laterality: bilateral Lung location: lower lobe of lung Plan: Due to COVID-19 (2) Acute on chronic diastolic heart failure Code(s): I50.33 - ACUTE ON CHRONIC DIASTOLIC (CONGESTIVE) HEART FAILURE Status: Resolved (3) Acute respiratory failure with hypoxia Code(s): J96.01 - ACUTE RESPIRATORY FAILURE WITH HYPOXIA Status: Acute (4) Depression Code(s): F32.9 - MAJOR DEPRESSIVE DISORDER, SINGLE EPISODE, UNSPECIFIED Status: Acute Qualifiers: Depression Type: unspecified Qualified Code(s): F32.9 - Major depressive disorder, single episode, unspecified (5) History of atrial fibrillation Code(s): Z86.79 - PERSONAL HISTORY OF OTHER DISEASES OF THE CIRCULATORY SYSTEM Status: Chronic (6) Anxiety and depression Code(s): F41.9 - ANXIETY DISORDER, UNSPECIFIED; F32.9 - MAJOR DEPRESSIVE DISORDER, SINGLE EPISODE, UNSPECIFIED Status: Chronic (7) Hypertension Code(s): I10 - ESSENTIAL (PRIMARY) HYPERTENSION Status: Chronic Qualifiers: Hypertension type: essential hypertension Qualified Code(s): I10 - Essential (primary) hypertension - Plan old records reviewed/req, continue antibiotics, PT/OT, social media designer, respiratory therapy, DVT proph w/lovenox Chest x-ray reviewed, no significant overall change in COVID-19 pneumonia, no worsening, Today we will discontinue IV Lasix and change to p.o. Lasix Today we will discontinue Rocephin and azithromycin and changed to doxycycline Wean off oxygen as tolerated, Patient will be able to go to long term home if oxygen level is less than 3 L per nasal cannula Continue dexamethasone at 4 mg p.o. daily Medication reviewed and continue provide symptomatic and supportive care
[2020-07-07] MEDS: Acetaminophen 325 MG TAB PO PRN ×2 (11:19→17:45)
[2020-07-07] MEDS: Furosemide 40 MG TAB PO SCH (12:53)
[2020-07-07] MEDS: Ondansetron PF 4 MG/2 ML Vial IVP PRN (14:07)
--- NOTE | 2020-07-07 17:21 | EKG ---
Test Reason : Blood Pressure : / mmHG Vent. Rate : 093 BPM Atrial Rate : 093 BPM P-R Int : 200 ms QRS Dur : 090 ms QT Int : 366 ms P-R-T Axes : 054 030 052 degrees QTc Int : 455 ms Normal sinus rhythm Normal ECG When compared with ECG of 03-JUL-2020 19:22, (Unconfirmed) No significant change was found Confirmed by DR. Jose E NORWOOD ([id number]) on 07/07/2020 5:21:25 PM Referred By: JASMIN Confirmed By:DR. Jose E NORWOOD
[2020-07-07] MEDS: Enoxaparin Sodium 40 MG/0.4 ML SYRINGE SC SCH (20:32)
[2020-07-07] MEDS: Zolpidem Tartrate 5 MG TAB PO PRN (20:38)
[2020-07-08] MEDS: Albuterol 200 PUFF (6.7GM INHALER) INH SCH ×4 (00:51→17:43)
[2020-07-08] MEDS: Calcium Carbonate 500 MG ChewTAB PO PRN (06:03)
[2020-07-08] MEDS: Lisinopril 20 MG TAB PO SCH (07:31)
[2020-07-08] MEDS: Dexamethasone 4 MG TAB PO SCH (07:31)
[2020-07-08] MEDS: Aspirin 81 mg Enteric Coated Tablet PO SCH (07:31)
[2020-07-08] MEDS: Doxycycline 100 MG CAP PO SCH ×2 (07:32→20:42)
[2020-07-08] MEDS: PARoxetine 20 MG TAB PO SCH (07:32)
[2020-07-08] MEDS: Cholecalciferol 1,000 UNITS (25 MCG) TAB PO SCH (07:32)
[2020-07-08] MEDS: Zinc Sulfate 220 MG CAP PO SCH (07:32)
[2020-07-08] MEDS: Furosemide 40 MG TAB PO SCH ×2 (07:32→12:36)
[2020-07-08] MEDS: Fish Oil 1,000 MG CAP PO SCH (07:32)
[2020-07-08] MEDS: Amlodipine 10 MG TAB PO SCH (07:32)
[2020-07-08] MEDS: Ascorbic Acid 500 mg Chewable Tablet PO SCH (07:32)
[2020-07-08] MEDS: Polyethylene Glycol 3350 17 GM Packet PO SCH (07:33)
[2020-07-08] MEDS: Acetaminophen 325 MG TAB PO PRN ×2 (08:38→17:20)
--- NOTE | 2020-07-08 10:08 | PDOC.HOSPP ---
- Subjective Encounter Date: 07/08/20 Encounter Time: 07:45 Subjective: Patient seen and examined bedside today, patient is currently on 4 L nasal cannula oxygen, patient [facility] to go to [facility] home, today I discussed with the patient about her goal of care, patient expressed her own wish to be a DNR, - Objective Vital Signs & Weight: Vital Signs (12 hours) Temp Pulse Resp BP BP Pulse Ox 07/08/20 08:23 94 L 07/08/20 08:10 98.1 F 76 20 131/70 94 L 07/08/20 07:32 76 131/70 07/08/20 07:31 131/70 Weight Admit Weight 163 lb 12.8 oz Weight 163 lb 12.855 oz I&O: 07/07/20 07/08/20 07/09/20 06:59 06:59 06:59 Intake Total 720 1600 Balance 720 1600 Result Diagrams: 07/06/20 07:15 07/06/20 07:15 Hospitalist ROS - Review of Systems Constitutional: reports: weakness. denies: fever, chills, sweats, malaise, other ENT: denies: ear pain, ear discharge, nose pain, nose discharge, nose congestion, mouth pain, mouth swelling, throat pain, throat swelling, other Respiratory: reports: cough, SOB with excertion. denies: dry, shortness of breath, hemoptysis, pleuritic pain, sputum, wheezing, other Cardiovascular: denies: chest pain, palpitations, orthopnea, paroxysmal noc. dy spnea, edema, light headedness, other Gastrointestinal: denies: nausea, vomiting, abdominal pain, diarrhea, constipation, melena, hematochezia, other Genitourinary: denies: dysuria, frequency, incontinence, hematuria, retention, other Musculoskeletal: denies: neck pain, shoulder pain, arm pain, back pain, hand pain, leg pain, foot pain, other Skin: denies: rash, lesions, hudson, bruising, other - Medication Medications: Active Medications Generic Name Dose Route Start Last Admin Trade Name Freq PRN Reason Stop Dose Admin Acetaminophen 650 mg 07/03/20 23:46 07/08/20 08:38 Acetaminophen 325 Mg Tab PO 650 mg Q4H PRN Administration Headache/Fever/Mild Pain (1-3) Hydrocodone Bitart/Acetaminophen 1 tab 07/03/20 23:46 07/04/20 11:41 Hydrocodone/Acetaminophen 5/325 Mg Tablet PO 1 tab Q4H PRN Administration Moderate Pain (4-6) Albuterol Sulfate 2 puff 07/04/20 13:00 07/08/20 05:47 Albuterol 200 Puff (6.7gm Inhaler) INH 2 puff [id number] INGE Administration Amlodipine Besylate 10 mg 07/04/20 09:00 07/08/20 07:32 Amlodipine 10 Mg Tab PO 10 mg DAILY INGE Administration Ascorbic Acid 500 mg 07/04/20 09:00 07/08/20 07:32 Ascorbic Acid 500 Mg Chewable Tablet PO 500 mg DAILY INGE Administration Aspirin 81 mg 07/04/20 09:00 07/08/20 07:31 Aspirin 81 Mg Enteric Coated Tablet PO 81 mg DAILY INGE Administration Calcium Carbonate 1,000 mg 07/04/20 08:01 07/08/20 06:03 Calcium Carbonate 500 Mg Chewtab PO 1,000 mg Q4H PRN Administration Heartburn or Indigestion Cholecalciferol 1,000 units 07/04/20 09:00 07/08/20 07:32 Cholecalciferol 1,000 Units (25 Mcg) Tab PO 1,000 units DAILY INGE Administration Dexamethasone 4 mg 07/08/20 08:00 07/08/20 07:31 Dexamethasone 4 Mg Tab PO 4 mg QAM-WM INGE Administration Doxycycline Hyclate 100 mg 07/07/20 09:00 07/08/20 07:32 Doxycycline 100 Mg Cap PO 100 mg BID INGE Administration Enoxaparin Sodium 40 mg 07/04/20 21:00 07/07/20 20:32 Enoxaparin Sodium 40 Mg/0.4 Ml Syringe SC 40 mg 2100 INGE Administration Fish Oil 1,000 mg 07/04/20 09:00 07/08/20 07:32 Fish Oil 1,000 Mg Cap PO Not Given DAILY INGE Furosemide 40 mg 07/07/20 14:00 07/08/20 07:32 Furosemide 40 Mg Tab PO 40 mg 0900,1400 INGE Administration Guaifenesin/Dextromethorphan 15 ml 07/03/20 23:46 07/04/20 05:20 Guaifenesin Dm 100-10/5 Ml Udcup PO 15 ml Q4H PRN Administration Cough Lisinopril 40 mg 07/04/20 09:00 07/08/20 07:31 Lisinopril 20 Mg Tab PO 40 mg DAILY INGE Administration Ondansetron HCl 4 mg 07/04/20 08:01 07/04/20 22:16 Ondansetron Odt 4 Mg Tab PO 4 mg Q6H PRN Administration Nausea/Vomiting Pantoprazole Sodium 40 mg 07/04/20 09:00 07/08/20 07:31 Pantoprazole 40 Mg Tab PO 40 mg DAILY INGE Administration Paroxetine HCl 20 mg 07/04/20 09:00 07/08/20 07:32 Paroxetine 20 Mg Tab PO 20 mg DAILY INGE Administration Polyethylene Glycol 17 gm 07/04/20 09:00 07/08/20 07:33 Polyethylene Glycol 3350 17 Gm Packet PO 17 gm DAILY INGE Administration Sodium Chloride 10 ml 07/07/20 21:00 07/08/20 07:33 Flush - Normal Saline 10 Ml Syringe IVF 10 ml Q12HR INGE Administration Zinc Sulfate 220 mg 07/04/20 09:00 07/08/20 07:32 Zinc Sulfate 220 Mg Cap PO 220 mg DAILY INGE Administration Zolpidem Tartrate 5 mg 07/04/20 08:01 07/07/20 20:38 Zolpidem Tartrate 5 Mg Tab PO 5 mg HSPRN PRN Administration Insomnia Hospitalist Exam Vitals: Vital Signs (12 hours) Temp Pulse Resp BP BP Pulse Ox 07/08/20 08:23 94 L 07/08/20 08:10 98.1 F 76 20 131/70 94 L 07/08/20 07:32 76 131/70 07/08/20 07:31 131/70 Weight Admit Weight 163 lb 12.8 oz Weight 163 lb 12.855 oz General Appearance: NAD, awake alert Eye: PERRL, anicteric sclera ENT: normocephalic atraumatic, no oropharyngeal lesions Neck: supple, symmetric, no JVD, no thyromegaly Heart: RRR, no murmur, no gallops, no rubs Respiratory: no wheezes, no rales, no ronchi Respiratory - other findings: Coarse breath sound at base Gastrointestinal: soft, non-tender, non-distended, normal bowel sounds Extremities: no cyanosis, no clubbing, no edema Skin: normal turgor, no lesions Neurological: no focal deficits Musculoskeletal: normal tone, normal strength Psychiatric: normal affect, normal behavior Hosp A/P (1) Pneumonia Code(s): J18.9 - PNEUMONIA, UNSPECIFIED ORGANISM Status: Acute Qualifiers: Laterality: bilateral Lung location: lower lobe of lung (2) Acute on chronic diastolic heart failure Code(s): I50.33 - ACUTE ON CHRONIC DIASTOLIC (CONGESTIVE) HEART FAILURE Status: Resolved (3) Acute respiratory failure with hypoxia Code(s): J96.01 - ACUTE RESPIRATORY FAILURE WITH HYPOXIA Status: Acute (4) Depression Code(s): F32.9 - MAJOR DEPRESSIVE DISORDER, SINGLE EPISODE, UNSPECIFIED Status: Acute Qualifiers: Depression Type: unspecified Qualified Code(s): F32.9 - Major depressive disorder, single episode, unspecified (5) History of atrial fibrillation Code(s): Z86.79 - PERSONAL HISTORY OF OTHER DISEASES OF THE CIRCULATORY SYSTEM Status: Chronic (6) Anxiety and depression Code(s): F41.9 - ANXIETY DISORDER, UNSPECIFIED; F32.9 - MAJOR DEPRESSIVE DISORDER, SINGLE EPISODE, UNSPECIFIED Status: Chronic (7) Hypertension Code(s): I10 - ESSENTIAL (PRIMARY) HYPERTENSION Status: Chronic Qualifiers: Hypertension type: essential hypertension Qualified Code(s): I10 - Essential (primary) hypertension - Plan old records reviewed/req, continue antibiotics, PT/OT, director social welfare, respiratory therapy, DVT proph w/lovenox 79-year-old female who was admitted in June 21, 2020, at that time patient was having Covid pneumonia, she also had acute respiratory failure due to Covid pneumonia, because of prolonged duration at that time patient did not qualify for remdesivir therapy or any plasma, patient was doing clinically better and she was discharged home on oxygen, after discharge patient did not feel better and she came back again in hospital on July 03, she had slightly elevated BNP's and based on x-ray findings with treated her with the Lasix, empiric Rocephin and azithromycin, will try to obtain echocardiography but because of her Covid positive status echocardiography was not done, patient expressed her wish to go to detention home, we change Lasix to p.o., we discontinued Rocephin and azithromycin and changed to doxycycline, patient is receiving dexamethasone since previous admission, repeat chest x-ray showed unchanged finding, currently on 4 L nasal cannula oxygen, Continue dexamethasone 4 mg p.o. 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
[2020-07-08] MEDS: Ondansetron PF 4 MG/2 ML Vial IVP PRN ×3 (10:43→22:12)
[2020-07-08] MEDS: Zolpidem Tartrate 5 MG TAB PO PRN (20:42)
[2020-07-08] MEDS: Enoxaparin Sodium 40 MG/0.4 ML SYRINGE SC SCH (20:42)
[2020-07-09] MEDS: Albuterol 200 PUFF (6.7GM INHALER) INH SCH ×3 (00:33→13:07)
[2020-07-09 07:43] VITALS: TEMP 98
[2020-07-09] MEDS: Dexamethasone 4 MG TAB PO SCH (07:56)
[2020-07-09] MEDS: Aspirin 81 mg Enteric Coated Tablet PO SCH (07:56)
[2020-07-09] MEDS: Doxycycline 100 MG CAP PO SCH (07:57)
[2020-07-09] MEDS: Fish Oil 1,000 MG CAP PO SCH (07:57)
[2020-07-09] MEDS: Lisinopril 20 MG TAB PO SCH (07:57)
[2020-07-09] MEDS: Furosemide 40 MG TAB PO SCH ×2 (07:57→14:50)
[2020-07-09] MEDS: Cholecalciferol 1,000 UNITS (25 MCG) TAB PO SCH (07:57)
[2020-07-09] MEDS: PARoxetine 20 MG TAB PO SCH (07:57)
[2020-07-09] MEDS: Amlodipine 10 MG TAB PO SCH (07:58)
[2020-07-09] MEDS: Zinc Sulfate 220 MG CAP PO SCH (07:58)
[2020-07-09] MEDS: Ascorbic Acid 500 mg Chewable Tablet PO SCH (07:58)
[2020-07-09] MEDS: Polyethylene Glycol 3350 17 GM Packet PO SCH (07:59)
[2020-07-09 08:15] VITALS: BP 131/70
--- NOTE | 2020-07-09 13:31 | PDOC.DS.DS ---
Provider Date of Admission: 07/03/20 22:31 Date of Discharge: 07/09/20 Admitting Provider: Aldair Winkler MD Primary Care Physician: Orestes Pickett MD Course Hospital Course: 79-year-old female who was admitted in June 21, 2020, at that time patient was having Covid pneumonia, she also had acute respiratory failure due to Covid pneumonia, because of prolonged duration at that time patient did not qualify for remdesivir therapy or any plasma, patient was doing clinically better and she was discharged home on oxygen, after discharge patient did not feel better and she came back again in hospital on July 03, she had slightly elevated BNP's and based on x-ray findings with treated her with the Lasix, empiric Rocephin and azithromycin, will try to obtain echocardiography but because of her Covid positive status echocardiography was not done, patient expressed her wish to go to [facility] home, we change Lasix to p.o., we discontinued Rocephin and azithromycin and changed to doxycycline, patient is receiving dexamethasone since previous admission, repeat chest x-ray showed unchanged finding, currently on 2.5 L nasal cannula oxygen. She is slowly improving but deconditioned due to recurrent hospital admission. At this point, patient has been accepted to swing bed in [place]. Patient is stable to transition. We have switched her over to taper prednisone, and Eliquis for DVT prophylaxis. Resuscitation Status: 07/08/20 09:15 Resuscitation Status Routine Resuscitation Status: DNAR: NO Resuscitation Discussed with: discussed with patient Lab Results: 07/06/20 07:15 07/06/20 07:15 Vitals: Vital Signs (12 hours) Temp Pulse Resp BP BP Pulse Ox 07/09/20 08:00 98 07/09/20 07:58 69 07/09/20 07:57 131/70 07/09/20 07:43 98.0 F 69 18 138/78 98 Weight Admit Weight 163 lb 12.8 oz Weight 163 lb 12.855 oz Physical Exam: The patient was seen and examined on the day of discharge. General Appearance: NAD Eye: PERRL ENT: normocephalic atraumatic Neck: supple Respiratory: CTAB Cardiovascular: RRR Gastrointestinal: soft Extremities: no cyanosis Skin: normal turgor Neurological: cranial nerve grossly intact Problem (1) Acute respiratory failure with hypoxia Code(s): J96.01 - ACUTE RESPIRATORY FAILURE WITH HYPOXIA Status: Acute (2) Acute on chronic diastolic heart failure Code(s): I50.33 - ACUTE ON CHRONIC DIASTOLIC (CONGESTIVE) HEART FAILURE Status: Resolved (3) Depression Code(s): F32.9 - MAJOR DEPRESSIVE DISORDER, SINGLE EPISODE, UNSPECIFIED Status: Acute Qualifiers: Depression Type: unspecified Qualified Code(s): F32.9 - Major depressive disorder, single episode, unspecified (4) Nausea Code(s): R11.0 - NAUSEA Status: Acute (5) Pneumonia due to COVID-19 virus Code(s): U07.1 - COVID-19; J12.82 - PNEUMONIA DUE TO CORONAVIRUS DISEASE 2019 Status: Acute (6) Anxiety and depression Code(s): F41.9 - ANXIETY DISORDER, UNSPECIFIED; F32.9 - MAJOR DEPRESSIVE DISORDER, SINGLE EPISODE, UNSPECIFIED Status: Chronic (7) History of atrial fibrillation Code(s): Z86.79 - PERSONAL HISTORY OF OTHER DISEASES OF THE CIRCULATORY SYSTEM Status: Chronic (8) Hypertension Code(s): I10 - ESSENTIAL (PRIMARY) HYPERTENSION Status: Chronic Qualifiers: Hypertension type: essential hypertension Qualified Code(s): I10 - Essential (primary) hypertension Time Spent in discharge related activities (mins): 35 Plan Prescriptions: Apixaban [Eliquis] 2.5 mg PO BID #60 tab predniSONE 10 mg PO QAM-WM #30 tab Home Medications: Medication Instructions Recorded Confirmed Type Amlodipine Besylate [amLODIPine 10 mg PO DAILY 05/08/14 07/04/20 History Besylate] Ascorbic Acid [Vitamin C] 500 mg PO DAILY 05/08/14 07/04/20 History Aspirin [Adult Low Dose Aspirin EC] 81 mg PO DAILY 05/08/14 07/04/20 History Fish Oil 1,000 mg PO DAILY 05/08/14 07/04/20 History Glucosamine/D3/Boswellia Elma 1 tab PO DAILY 05/08/14 07/04/20 History [Osteo Bi-Flex One Per Day] Lisinopril 40 mg PO DAILY 05/08/14 07/04/20 History PARoxetine HCl [Paxil] 20 mg PO DAILY 05/08/14 07/04/20 History Benzonatate [Tessalon] 100 mg PO Q6H PRN #30 cap 06/23/20 07/04/20 Rx Cholecalciferol [Vitamin D3] 1,000 units PO DAILY #14 tab 06/23/20 07/04/20 Rx Pantoprazole [Protonix] 40 mg PO DAILY #7 tab 06/23/20 07/04/20 Rx Apixaban [Eliquis] 2.5 mg PO BID #60 tab 07/09/20 Rx predniSONE 10 mg PO QAM-WM #30 tab 07/09/20 Rx Allergies: No Known Allergies Allergy (Verified 07/04/20 01:12) Referrals: Orestes Pickett MD [Primary Care Provider] - Disposition: [facility] Quality CORE MEASURES:: N/A
[2020-07-09] MEDS ORDERED: Metoclopramide HCl 10 MG/2 ML VIAL IVP SCH (14:00)
[2020-07-09] MEDS: Acetaminophen 325 MG TAB PO PRN (14:50)
--- NOTE | 2020-07-12 21:59 | EKG ---
Test Reason : Blood Pressure : / mmHG Vent. Rate : 083 BPM Atrial Rate : 083 BPM P-R Int : 208 ms QRS Dur : 092 ms QT Int : 396 ms P-R-T Axes : 058 020 056 degrees QTc Int : 465 ms Normal sinus rhythm Normal ECG Confirmed by LIT DWYER DO ([id number]), offline editor DONALD OQUENDO ([id number]) on 07/12/2020 9:58:58 PM Referred By: Confirmed By:LIT DWYER DO
== END 2020-07-09 16:46 | disposition swing bed (61) | DRG 177 ==
LOC: ERS 19:12 → T4-A 22:31
PROVIDERS: ADMIT Internal Medicine; ATTEND Family Medicine
PROC: 8E0ZXY6 Isolation (ICD-10-PCS; principal; 2020-07-03)
DX: U07.1 COVID-19 (principal); I50.33 Acute on chronic diastolic (congestive) heart failure; J96.01 Acute respiratory failure with hypoxia; J12.82 Pneumonia due to coronavirus disease 2019; Z66 Do not resuscitate; I48.91 Unspecified atrial fibrillation; F32.9 Major depressive disorder, single episode, unspecified; F41.9 Anxiety disorder, unspecified; I11.0 Hypertensive heart disease with heart failure; R11.0 Nausea; Z86.19 Personal history of other infectious and parasitic diseases; Z79.899 Other long term (current) drug therapy; Z95.810 Presence of automatic (implantable) cardiac defibrillator; Z90.49 Acquired absence of other specified parts of digestive tract
CPT/HCPCS: 36415; 71045; 80048; 80053; 82728; 83605; 83735; 83880; 84100; 84145; 84484; 85025; 86140; 87449; 87899; 93005; 93010; 96365; 96366; 96367; 96368; 96375; J0456; J0696; J1100; J1650; J1940; J2405; J2765; J3475; J3490; J7050; J8540; Q0162

== ENCOUNTER 2020-10-29 12:20 | Outpatient (CLI) | payer MEDICARE, OTHER | END 2020-10-29 12:21 | disposition home or self-care (01) | LOC: BICRAD 12:20 | PROVIDERS: ATTEND Family Medicine | DX: M54.5 Low back pain (principal); M47.816 Spondylosis without myelopathy or radiculopathy, lumbar region | CPT/HCPCS: 72100 ==

== ENCOUNTER 2021-04-03 10:39 | Outpatient (CLI) | payer MEDICARE, OTHER ==
[2021-04-03 11:15] LABS: Bilirubin Neg (Negative); Blood, Urine Negative (Negative); Clarity Clear (Clear); Glucose, Urine (Dipstick) Normal (Negative); Ketone, Urine Negative (Negative); Leukocyte 25 (Negative); Nitrite Negative (Negative); Protein, Urine (Dipstick) Negative (Neg-Trace); Urobilinogen Normal mg/dL (Less than 2)
[2021-04-03 11:37] LABS: RBC/HPF 0-3 HPF (0-3)
[2021-04-03 11:38] LABS: WBC/HPF 0-3 HPF (0-3)
[2021-04-03 11:39] LABS: Bacteria/HPF 1+ HPF (None Seen)
[2021-04-03 12:06] LABS: Hemoglobin 13.8 g/dL (12.0-15.5); Mean Corpuscular HGB CONC 33.5 g/dL (32.0-36.0); Mean Corpuscular Hemoglobin 29.7 pg (27.0-33.0); Mean Corpuscular Volume 88.6 fl (81.6-98.3); Mean Platelet Volume 10.7 fl (7.4-10.4); Platelet Count 237 10x3/uL (150-450); RBC Distribution Width 12.3 % (11.5-14.5); Red Blood Cell (RBC) Count 4.65 10x6/uL (3.90-5.03)
[2021-04-03 12:07] LABS: Prothrombin Time 10.6 sec (9.5-12.1)
[2021-04-03 12:09] LABS: Anion Gap 12 mmol/L (10-20); BUN (Urea Nitrogen) 13 mg/dL (9.8-20.1); Calc. Creatinine Clearance 0 mL/min (70-130); Calcium 9.4 mg/dL (7.8-10.44); Carbon Dioxide 26 mmol/L (23-31); Chloride 104 mmol/L (98-107); Glucose 80 mg/dL (83-110); Potassium 4.1 mmol/L (3.5-5.1); Sodium 138 mmol/L (136-145)
[2021-04-03 12:45] LABS: MDiff Complete? YES
[2021-04-03 12:53] LABS: Eosinophils 3 % (0-10); Lymphocytes 29 % (21-51); Monocytes 12 % (0-10); Neutrophil 51 % (42-75); Reactive Lymphocytes 2 % (0-10)
[2021-04-03 12:57] LABS: Platelet Morphology Comment Appears Adequate; RBC Morphology Normal
[2021-04-04 00:36] LABS: SARS-CoV-2 PCR by NAA Not Detected (NotDetected)
== END 2021-04-03 10:40 | disposition home or self-care (01) ==
LOC: LABBT 10:39
PROVIDERS: ATTEND Orthopaedic Surgery
DX: Z01.818 Encounter for other preprocedural examination (principal); M17.11 Unilateral primary osteoarthritis, right knee; Z20.822 Contact with and (suspected) exposure to COVID-19
CPT/HCPCS: 71046; 80048; 85025; 85610; 86850; 86900; 86901; 87081; 93005; U0003; U0005; 81003; 81015; 93010

== ENCOUNTER 2021-04-08 05:49 | Inpatient (IN) | payer MEDICARE, OTHER ==
[2021-04-03 12:06] LABS: Hemoglobin 13.8 g/dL (12.0-15.5); Mean Corpuscular HGB CONC 33.5 g/dL (32.0-36.0); Mean Corpuscular Hemoglobin 29.7 pg (27.0-33.0); Mean Corpuscular Volume 88.6 fl (81.6-98.3); Mean Platelet Volume 10.7 fl (7.4-10.4); Platelet Count 237 10x3/uL (150-450); RBC Distribution Width 12.3 % (11.5-14.5); Red Blood Cell (RBC) Count 4.65 10x6/uL (3.90-5.03)
[2021-04-03 12:45] LABS: MDiff Complete? YES
[2021-04-03 12:53] LABS: Eosinophils 3 % (0-10); Lymphocytes 29 % (21-51); Monocytes 12 % (0-10); Neutrophil 51 % (42-75); Reactive Lymphocytes 2 % (0-10)
[2021-04-03 12:57] LABS: Platelet Morphology Comment Appears Adequate; RBC Morphology Normal
[2021-04-04 00:36] LABS: SARS-CoV-2 PCR by NAA Not Detected (NotDetected)
[2021-04-08] MEDS ORDERED: Vancomycin 1 GM/200 ML BAG ONE (06:14)
[2021-04-08] MEDS ORDERED: Sodium Chloride 0.9% 100 ML ONE (06:14)
[2021-04-08] MEDS ORDERED: Tranexamic Acid 1,000 MG/10 ML VIAL ONE ×2 (06:14→10:23)
[2021-04-08] MEDS ORDERED: ceFAZolin 2 GM/DEX 5% 100 ML BAG ONE (06:14)
[2021-04-08] MEDS ORDERED: Fentanyl 100 MCG/2 ML VIAL ONE ×4 (06:39→10:23)
[2021-04-08] MEDS ORDERED: Midazolam HCl 2 mg/2 ml Vial ONE (06:58)
[2021-04-08] MEDS ORDERED: Bupivacaine PF 0.5% 30 ML VIAL ONE ×2 (07:03→07:34)
[2021-04-08] MEDS ORDERED: PROPOFOL 200 MG/20 ML VIAL ONE (07:34)
[2021-04-08] MEDS ORDERED: Ondansetron PF 4 MG/2 ML Vial ONE (07:34)
[2021-04-08] MEDS ORDERED: Ketorolac Tromethamine 30 MG/ML VIAL ONE (07:34)
[2021-04-08] MEDS ORDERED: Lidocaine 1% PF 5 ML VIAL ONE (07:34)
[2021-04-08] MEDS ORDERED: traMADol HCl 50 MG TAB PO PRN ×3 (09:38→10:15)
[2021-04-08] MEDS ORDERED: Ondansetron PF 4 MG/2 ML Vial IVP PRN ×2 (09:38→10:15)
[2021-04-08] MEDS ORDERED: HYDROcodone/Acetaminophen 10/325 mg Tablet PO PRN ×2 (09:38)
[2021-04-08] MEDS ORDERED: Zolpidem Tartrate 5 MG TAB PO PRN ×2 (09:38→10:15)
[2021-04-08] MEDS ORDERED: Fentanyl 100 MCG/2 ML VIAL SLOW IVP PRN (09:38)
[2021-04-08] MEDS ORDERED: Promethazine HCl 25 MG/ML VIAL IM PRN ×2 (09:38→10:15)
[2021-04-08] MEDS ORDERED: diphenhydrAMINE 25 MG CAP PO PRN (09:38)
[2021-04-08] MEDS ORDERED: Tranexamic Acid 1,000 MG in Sodium Chloride 0.9% 100 ML IVPB SCH (09:45)
[2021-04-08] MEDS ORDERED: Ropivacaine 0.2% 550 ML 550 ML NERVE BLCK SCH (10:15)
[2021-04-08] MEDS ORDERED: HYDROcodone/Acetaminophen 5/325 mg Tablet PO PRN (10:15)
[2021-04-08] MEDS ORDERED: Labetalol HCl 100 MG/20 ML VIAL ONE (10:49)
[2021-04-08] MEDS: Ketorolac Tromethamine 30 MG/ML VIAL IVP SCH ×3 (12:57→23:44)
[2021-04-08] MEDS: Sodium Chloride 0.9% 1,000 ML IV SCH ×2 (13:00→20:58)
[2021-04-08] MEDS ORDERED: ceFAZolin Sodium/D5W 2 GM in Premix Bag 1 BAG IVPB SCH (14:00)
[2021-04-08] MEDS ORDERED: Vancomycin 1 GM in Premix Bag 1 BAG IVPB SCH (18:00)
[2021-04-08] MEDS: CEFAZOLIN 2 GM, Admixture Fee 1 EACH in Sodium Chloride 0.9% 100 ML IVPB SCH (20:57)
[2021-04-08] MEDS: Ferrous Gluconate 324 MG TAB PO SCH (20:58)
[2021-04-08] MEDS: Senokot S 8.6-50 MG TAB PO SCH (20:58)
[2021-04-08] MEDS ORDERED: Aspirin 81 mg Enteric Coated Tablet PO SCH (21:00)
[2021-04-08] MEDS: Acetaminophen 325 MG TAB PO PRN (21:04)
[2021-04-09] MEDS: Fentanyl 100 MCG/2 ML VIAL IV PRN ×2 (02:22→05:32)
[2021-04-09] MEDS: HYDROcodone/Acetaminophen 5/325 mg Tablet PO PRN ×2 (04:46→09:09)
[2021-04-09] MEDS: Sodium Chloride 0.9% 1,000 ML IV SCH ×2 (04:47→12:47)
[2021-04-09] MEDS: CEFAZOLIN 2 GM, Admixture Fee 1 EACH in Sodium Chloride 0.9% 100 ML IVPB SCH (05:18)
[2021-04-09] MEDS: Ketorolac Tromethamine 30 MG/ML VIAL IVP SCH ×3 (05:22→18:38)
[2021-04-09 05:51] LABS: Hemoglobin 10.3 g/dL (12.0-16.0); Mean Corpuscular HGB CONC 33.6 g/dL (32.0-36.0); Mean Corpuscular Hemoglobin 30.7 pg (27.0-31.0); Mean Corpuscular Volume 91.3 fL (78.0-98.0); Mean Platelet Volume 8.3 fL (7.4-10.4); Platelet Count 182 thou/uL (130-400); RBC Distribution Width 11.5 % (11.5-14.5); Red Blood Cell (RBC) Count 3.36 mill/uL (4.20-5.40); White Blood Cell (WBC) Count 9.3 thou/uL (4.8-10.8)
[2021-04-09] MEDS ORDERED: Non-Formulary Item 1 EACH (Lisinopril [Lisinopril] 40 MG Tablet) PO SCH (09:00)
[2021-04-09] MEDS: Senokot S 8.6-50 MG TAB PO SCH ×2 (09:10→20:31)
[2021-04-09] MEDS: Lisinopril 20 MG TAB PO SCH (09:10)
[2021-04-09] MEDS: PARoxetine 20 MG TAB PO SCH (09:11)
[2021-04-09] MEDS: Aspirin 81 mg Enteric Coated Tablet PO SCH (09:11)
[2021-04-09] MEDS: Ferrous Gluconate 324 MG TAB PO SCH ×2 (09:11→20:31)
[2021-04-09] MEDS: Amlodipine 10 MG TAB PO SCH (09:11)
[2021-04-09] MEDS: Cholecalciferol 1,000 UNITS (25 MCG) TAB PO SCH (09:11)
[2021-04-09] MEDS ORDERED: Ondansetron PF 4 MG/2 ML Vial IVP PRN (11:45)
[2021-04-09] MEDS ORDERED: Promethazine HCl 25 MG/ML VIAL IM PRN (11:45)
[2021-04-09] MEDS ORDERED: diphenhydrAMINE 25 MG CAP PO PRN (11:45)
[2021-04-09] MEDS ORDERED: Zolpidem Tartrate 5 MG TAB PO PRN (11:45)
[2021-04-09] MEDS ORDERED: diphenhydrAMINE 50 MG/ML VIAL IM/IV PRN (11:45)
[2021-04-09] MEDS ORDERED: Naloxone HCl 0.4 mg/ml Vial IV PRN (11:45)
[2021-04-09] MEDS: Fish Oil 1,000 MG CAP PO SCH (12:51)
[2021-04-09] MEDS: Multivitamin W/ Minerals 1 TAB PO SCH (12:52)
[2021-04-09] MEDS: Fentanyl CADD 100 ML IVPB SCH (13:44)
[2021-04-09] MEDS: Acetaminophen 325 MG TAB PO PRN (20:31)
[2021-04-10] MEDS: Ketorolac Tromethamine 30 MG/ML VIAL IVP SCH ×2 (00:06→05:52)
[2021-04-10] MEDS: Sodium Chloride 0.9% 1,000 ML IV SCH ×3 (00:18→21:07)
[2021-04-10 05:43] LABS: Hemoglobin 9.5 g/dL (12.0-16.0); Mean Corpuscular HGB CONC 35.1 g/dL (32.0-36.0); Mean Platelet Volume 8.7 fL (7.4-10.4); Platelet Count 168 thou/uL (130-400); RBC Distribution Width 11.5 % (11.5-14.5); Red Blood Cell (RBC) Count 2.97 mill/uL (4.20-5.40); White Blood Cell (WBC) Count 9.6 thou/uL (4.8-10.8)
[2021-04-10] MEDS: Multivitamin W/ Minerals 1 TAB PO SCH (08:48)
[2021-04-10] MEDS: Amlodipine 10 MG TAB PO SCH (08:48)
[2021-04-10] MEDS: Lisinopril 20 MG TAB PO SCH (08:48)
[2021-04-10] MEDS: Fish Oil 1,000 MG CAP PO SCH (08:48)
[2021-04-10] MEDS: Cholecalciferol 1,000 UNITS (25 MCG) TAB PO SCH (08:48)
[2021-04-10] MEDS: Senokot S 8.6-50 MG TAB PO SCH ×2 (08:48→21:07)
[2021-04-10] MEDS: PARoxetine 20 MG TAB PO SCH (08:48)
[2021-04-10] MEDS: Ferrous Gluconate 324 MG TAB PO SCH ×2 (08:48→21:07)
[2021-04-10] MEDS: Aspirin 81 mg Enteric Coated Tablet PO SCH (08:48)
[2021-04-10] MEDS: Acetaminophen 325 MG TAB PO PRN ×3 (11:38→21:06)
[2021-04-10 19:14] LABS: Amphetamine Not Detected (NotDetected); Barbiturates Screen Not Detected (NotDetected); Benzodiazepine Screen Not Detected (NotDetected); Cocaine Metabolite Screen Not Detected (NotDetected); Methadone Not Detected (NotDetected); Methamphetamine Not Detected (NotDetected); Opiate Screen Not Detected (NotDetected); Oxycodone Screen Not Detected (NotDetected); Phencyclidine (PCP) Not Detected (NotDetected); THC/Cannabinoid Screen Not Detected (NotDetected); Tricyclic Screen Not Detected (NotDetected)
[2021-04-10] MEDS: Fentanyl CADD 100 ML IVPB SCH (19:34)
[2021-04-10 19:38] LABS: #Eosinphils 0.1 thou/uL (0.0-0.7); #Lymphocytes 0.6 thou/uL (1.20-3.40); #Monocytes 1.2 thou/uL (0.11-0.59); #Neutrophils 8.9 thou/uL (1.40-6.50); %Basophils 0.1 % (0.0-1.0); %Eosinophils 1.3 % (0.0-10.0); %Lymphocytes 5.8 % (21.0-51.0); %Monocytes 10.9 % (0.0-10.0); %Neutrophils 81.9 % (42.0-75.0); Hemoglobin 9.1 g/dL (12.0-16.0); Mean Corpuscular HGB CONC 34.4 g/dL (32.0-36.0); Mean Corpuscular Hemoglobin 31.3 pg (27.0-31.0); Mean Corpuscular Volume 91.1 fL (78.0-98.0); Mean Platelet Volume 8.2 fL (7.4-10.4); Platelet Count 171 thou/uL (130-400); RBC Distribution Width 11.2 % (11.5-14.5); Red Blood Cell (RBC) Count 2.89 mill/uL (4.20-5.40); White Blood Cell (WBC) Count 10.9 thou/uL (4.8-10.8)
[2021-04-10 19:50] LABS: INR-International Normal Ratio 1.2; PTT 36.4 sec (22.9-36.1)
[2021-04-10 20:00] LABS: ALT (SGPT) 41 U/L (8-55); AST (SGOT) 32 U/L (5-34); Albumin 3.6 g/dL (3.4-4.8); Alcohol Less than 10 mg/dL (Less than 10); Alkaline Phosphatase 111 U/L (40-110); Anion Gap 11 mmol/L (10-20); BUN (Urea Nitrogen) 8 mg/dL (9.8-20.1); Calc. Creatinine Clearance 73 mL/min (70-130); Carbon Dioxide 25 mmol/L (23-31); Chloride 100 mmol/L (98-107); Globulin 2.7 g/dL (2.4-3.5); Glucose 156 mg/dL (83-110); Magnesium 1.8 mg/dL (1.6-2.6); Potassium 3.4 mmol/L (3.5-5.1); Protein, Total 6.3 g/dL (5.8-8.1); Sodium 133 mmol/L (136-145)
[2021-04-10 20:04] LABS: Phosphorus 1.8 mg/dL (2.3-4.7)
[2021-04-10] MEDS ORDERED: PHOS-NAK 1 PKT PACK PO ONE (20:15)
[2021-04-10] MEDS ORDERED: Potassium Phosphate 30 MMOL in Sodium Chloride 0.9% 250 ML 250 ML IVPB SCH (20:45)
[2021-04-10] MEDS ORDERED: Electrolyte Replacement Protocol 1 EACH FS PRN (20:45)
[2021-04-10] MEDS ORDERED: Potassium Phosphate 15 MMOL in Sodium Chloride 0.9% 250 ML 250 ML IVPB SCH (21:00)
[2021-04-10] MEDS ORDERED: Magnesium 2 GM/50 ML 2 GM in Premix Bag 1 BAG IVPB SCH (21:00)
[2021-04-10] MEDS ORDERED: Potassium Chloride 20 MEQ TAB PO SCH (21:00)
[2021-04-10] MEDS ORDERED: Calcium Carbonate 500 MG ChewTAB PO SCH (22:15)
[2021-04-11 04:42] LABS: #Eosinphils 0.2 thou/uL (0.0-0.7); #Lymphocytes 0.8 thou/uL (1.20-3.40); #Monocytes 1.2 thou/uL (0.11-0.59); #Neutrophils 8.5 thou/uL (1.40-6.50); %Basophils 0.1 % (0.0-1.0); %Eosinophils 1.5 % (0.0-10.0); %Lymphocytes 7.4 % (21.0-51.0); %Monocytes 11.4 % (0.0-10.0); %Neutrophils 79.7 % (42.0-75.0); Mean Corpuscular HGB CONC 35.1 g/dL (32.0-36.0); Mean Corpuscular Hemoglobin 31.7 pg (27.0-31.0); Mean Corpuscular Volume 90.2 fL (78.0-98.0); Mean Platelet Volume 8.2 fL (7.4-10.4); Platelet Count 190 thou/uL (130-400); RBC Distribution Width 11.2 % (11.5-14.5); Red Blood Cell (RBC) Count 2.84 mill/uL (4.20-5.40); White Blood Cell (WBC) Count 10.6 thou/uL (4.8-10.8)
[2021-04-11 05:42] LABS: ALT (SGPT) 34 U/L (8-55); AST (SGOT) 24 U/L (5-34); Albumin 3.4 g/dL (3.4-4.8); Alkaline Phosphatase 100 U/L (40-110); Anion Gap 9 mmol/L (10-20); BUN (Urea Nitrogen) 10 mg/dL (9.8-20.1); Calc. Creatinine Clearance 79 mL/min (70-130); Calcium 8.7 mg/dL (7.8-10.44); Carbon Dioxide 27 mmol/L (23-31); Chloride 102 mmol/L (98-107); Globulin 2.8 g/dL (2.4-3.5); Glucose 131 mg/dL (83-110); Magnesium 2.2 mg/dL (1.6-2.6); Phosphorus 2.2 mg/dL (2.3-4.7); Potassium 4.1 mmol/L (3.5-5.1); Protein, Total 6.2 g/dL (5.8-8.1); Sodium 134 mmol/L (136-145)
[2021-04-11] MEDS: Sodium Chloride 0.9% 1,000 ML IV SCH (06:42)
[2021-04-11] MEDS: Ferrous Gluconate 324 MG TAB PO SCH ×2 (09:12→20:20)
[2021-04-11] MEDS: Lisinopril 20 MG TAB PO SCH (09:12)
[2021-04-11] MEDS: PARoxetine 20 MG TAB PO SCH (09:12)
[2021-04-11] MEDS: Amlodipine 10 MG TAB PO SCH (09:12)
[2021-04-11] MEDS: Senokot S 8.6-50 MG TAB PO SCH ×2 (09:21→20:21)
[2021-04-11] MEDS: Fish Oil 1,000 MG CAP PO SCH (09:21)
[2021-04-11] MEDS: Multivitamin W/ Minerals 1 TAB PO SCH (09:21)
[2021-04-11] MEDS: Cholecalciferol 1,000 UNITS (25 MCG) TAB PO SCH (09:24)
[2021-04-11] MEDS: Acetaminophen 325 MG TAB PO PRN ×2 (11:37→20:20)
[2021-04-11 16:01] VITALS: BMI 27.0
[2021-04-11] MEDS: CeleCOXIB 100 MG CAP PO SCH (20:20)
[2021-04-12] MEDS: Acetaminophen 325 MG TAB PO PRN ×2 (02:06→11:57)
[2021-04-12 06:02] LABS: #Eosinphils 0.2 thou/uL (0.0-0.7); #Lymphocytes 0.6 thou/uL (1.20-3.40); #Neutrophils 6.5 thou/uL (1.40-6.50); %Basophils 0.4 % (0.0-1.0); %Eosinophils 2.2 % (0.0-10.0); %Lymphocytes 7.4 % (21.0-51.0); %Monocytes 12.1 % (0.0-10.0); %Neutrophils 77.9 % (42.0-75.0); Hemoglobin 8.6 g/dL (12.0-16.0); Mean Corpuscular HGB CONC 33.6 g/dL (32.0-36.0); Mean Corpuscular Hemoglobin 30.9 pg (27.0-31.0); Mean Corpuscular Volume 92.1 fL (78.0-98.0); Platelet Count 230 thou/uL (130-400); RBC Distribution Width 11.4 % (11.5-14.5); Red Blood Cell (RBC) Count 2.79 mill/uL (4.20-5.40); White Blood Cell (WBC) Count 8.4 thou/uL (4.8-10.8)
[2021-04-12 06:26] LABS: ALT (SGPT) 29 U/L (8-55); AST (SGOT) 21 U/L (5-34); Albumin 3.5 g/dL (3.4-4.8); Alkaline Phosphatase 94 U/L (40-110); Anion Gap 10 mmol/L (10-20); BUN (Urea Nitrogen) 11 mg/dL (9.8-20.1); Bilirubin, Total 1.2 mg/dL (0.2-1.2); Calc. Creatinine Clearance 82 mL/min (70-130); Calcium 9.1 mg/dL (7.8-10.44); Carbon Dioxide 29 mmol/L (23-31); Chloride 102 mmol/L (98-107); Globulin 2.5 g/dL (2.4-3.5); Glucose 145 mg/dL (83-110); Phosphorus 2.5 mg/dL (2.3-4.7); Potassium 4.1 mmol/L (3.5-5.1); Sodium 137 mmol/L (136-145)
[2021-04-12 06:44] LABS: Thyroid Stimulating Hormone 1.6464 uIU/mL (0.35-4.94)
[2021-04-12] MEDS ORDERED: Magnesium 2 GM/50 ML 2 GM in Premix Bag 1 BAG IVPB SCH (08:00)
[2021-04-12] MEDS: Senokot S 8.6-50 MG TAB PO SCH ×2 (08:44→21:16)
[2021-04-12] MEDS: Fish Oil 1,000 MG CAP PO SCH (08:44)
[2021-04-12] MEDS: PARoxetine 20 MG TAB PO SCH (08:44)
[2021-04-12] MEDS: Aspirin Chewable 81 MG TAB PO SCH (08:44)
[2021-04-12] MEDS: Ferrous Gluconate 324 MG TAB PO SCH ×2 (08:44→21:17)
[2021-04-12] MEDS: Amlodipine 10 MG TAB PO SCH (08:44)
[2021-04-12] MEDS: Multivitamin W/ Minerals 1 TAB PO SCH (08:45)
[2021-04-12] MEDS: CeleCOXIB 100 MG CAP PO SCH ×2 (08:45→21:16)
[2021-04-12] MEDS: Cholecalciferol 1,000 UNITS (25 MCG) TAB PO SCH (08:45)
[2021-04-12] MEDS: cefTRIAXone\\ROCEPHIN 2 GM in Sodium Chloride 0.9% 100 ML IVPB SCH (08:46)
[2021-04-12] MEDS ORDERED: CeleCOXIB 100 MG CAP PO SCH (09:00)
[2021-04-12] MEDS: Lisinopril 20 MG TAB PO SCH (10:05)
[2021-04-12] MEDS ORDERED: Cyanocobalamin 1000 MCG/ML VIAL IM SCH (11:30)
[2021-04-12] MEDS ORDERED: Iopamidol-370 76% 500 ML 1 ML ONE (13:30)
[2021-04-12 14:31] LABS: Bacteria/HPF None Seen HPF (None Seen); Bilirubin Negative (Negative); Blood, Urine Negative (Negative); Clarity Clear (Clear); Glucose, Urine (Dipstick) Normal (Negative); Ketone, Urine Negative (Negative); Leukocyte Negative Leu/uL (Negative); Nitrite Negative (Negative); Protein, Urine (Dipstick) 20 mg/dL (Neg-Trace); RBC/HPF 0-3 HPF (0-3); Squamous Epithelial 0-3 HPF (0-3); Urobilinogen Normal mg/dL (Less than 2); WBC/HPF 0-3 HPF (0-3); pH, Urine 7.5 (5.0-9.0)
[2021-04-12 14:32] LABS: Specific Gravity, Urine 1.052 (1.002-1.036)
[2021-04-12 14:34] LABS: Urine Culture Reflex No No
[2021-04-12] MEDS: HYDROcodone/Acetaminophen 10/325 mg Tablet PO PRN ×2 (16:56→21:45)
[2021-04-13] MEDS: Acetaminophen 325 MG TAB PO PRN (03:32)
[2021-04-13 04:57] LABS: #Eosinphils 0.3 thou/uL (0.0-0.7); #Lymphocytes 0.7 thou/uL (1.20-3.40); #Neutrophils 4.8 thou/uL (1.40-6.50); %Basophils 0.7 % (0.0-1.0); %Eosinophils 4.7 % (0.0-10.0); %Lymphocytes 10.1 % (21.0-51.0); %Monocytes 14.9 % (0.0-10.0); %Neutrophils 69.6 % (42.0-75.0); Hemoglobin 8.1 g/dL (12.0-16.0); Mean Corpuscular HGB CONC 33.6 g/dL (32.0-36.0); Mean Corpuscular Hemoglobin 30.3 pg (27.0-31.0); Mean Corpuscular Volume 90.2 fL (78.0-98.0); Mean Platelet Volume 7.5 fL (7.4-10.4); Platelet Count 262 thou/uL (130-400); RBC Distribution Width 11.4 % (11.5-14.5); Red Blood Cell (RBC) Count 2.68 mill/uL (4.20-5.40); White Blood Cell (WBC) Count 6.8 thou/uL (4.8-10.8)
[2021-04-13 05:23] LABS: ALT (SGPT) 30 U/L (8-55); AST (SGOT) 24 U/L (5-34); Albumin 3.4 g/dL (3.4-4.8); Alkaline Phosphatase 91 U/L (40-110); Anion Gap 11 mmol/L (10-20); BUN (Urea Nitrogen) 10 mg/dL (9.8-20.1); Bilirubin, Total 1.3 mg/dL (0.2-1.2); Calc. Creatinine Clearance 79 mL/min (70-130); Calcium 8.8 mg/dL (7.8-10.44); Carbon Dioxide 29 mmol/L (23-31); Chloride 100 mmol/L (98-107); Globulin 2.4 g/dL (2.4-3.5); Glucose 128 mg/dL (83-110); Magnesium 1.9 mg/dL (1.6-2.6); Phosphorus 2.8 mg/dL (2.3-4.7); Potassium 3.6 mmol/L (3.5-5.1); Protein, Total 5.8 g/dL (5.8-8.1); Sodium 136 mmol/L (136-145)
[2021-04-13] MEDS ORDERED: Magnesium 2 GM/50 ML 2 GM in Premix Bag 1 BAG IVPB SCH (07:45)
[2021-04-13] MEDS ORDERED: Cyanocobalamin (Vitamin B-12) 1,000 MCG TAB PO SCH (09:00)
[2021-04-13] MEDS: cefTRIAXone\\ROCEPHIN 2 GM in Sodium Chloride 0.9% 100 ML IVPB SCH (09:35)
[2021-04-13] MEDS: Amlodipine 10 MG TAB PO SCH (09:37)
[2021-04-13] MEDS: Aspirin Chewable 81 MG TAB PO SCH (09:38)
[2021-04-13] MEDS: Lisinopril 20 MG TAB PO SCH (09:38)
[2021-04-13] MEDS: Multivitamin W/ Minerals 1 TAB PO SCH (09:38)
[2021-04-13] MEDS: Cholecalciferol 1,000 UNITS (25 MCG) TAB PO SCH (09:39)
[2021-04-13] MEDS: PARoxetine 20 MG TAB PO SCH (09:40)
[2021-04-13] MEDS: Senokot S 8.6-50 MG TAB PO SCH (09:40)
[2021-04-13] MEDS: CeleCOXIB 100 MG CAP PO SCH (09:41)
[2021-04-13] MEDS: HYDROcodone/Acetaminophen 10/325 mg Tablet PO PRN (09:41)
[2021-04-13] MEDS: Ferrous Gluconate 324 MG TAB PO SCH (09:45)
[2021-04-13] MEDS: Fish Oil 1,000 MG CAP PO SCH (10:06)
[2021-04-13 11:34] VITALS: BP 151/66; TEMP 98.2
== END 2021-04-13 14:05 | disposition swing bed (61) | DRG 469 ==
LOC: SDC 05:49 → SJJU 09:38 → SDC 04-10 13:32
PROVIDERS: ADMIT Orthopaedic Surgery; ATTEND Orthopaedic Surgery
PROC: 0SRC0J9 Replacement of Right Knee Joint with Synthetic Substitute, Cemented, Open Approach (ICD-10-PCS; principal; 2021-04-08)
PROC: 8E0YXBZ Computer Assisted Procedure of Lower Extremity (ICD-10-PCS; 2021-04-08)
DX: M17.11 Unilateral primary osteoarthritis, right knee (principal); G92.8 Other toxic encephalopathy; M96.840 Postprocedural hematoma of a musculoskeletal structure following a musculoskeletal system procedure; R65.10 Systemic inflammatory response syndrome (SIRS) of non-infectious origin without acute organ dysfunction; Z20.822 Contact with and (suspected) exposure to COVID-19; I48.91 Unspecified atrial fibrillation; I49.5 Sick sinus syndrome; I10 Essential (primary) hypertension; H90.3 Sensorineural hearing loss, bilateral; M48.061 Spinal stenosis, lumbar region without neurogenic claudication; K21.9 Gastro-esophageal reflux disease without esophagitis; G47.00 Insomnia, unspecified; B19.20 Unspecified viral hepatitis C without hepatic coma; D51.9 Vitamin B12 deficiency anemia, unspecified; F41.9 Anxiety disorder, unspecified; T41.45XA Adverse effect of unspecified anesthetic, initial encounter; Y83.8 Other surgical procedures as the cause of abnormal reaction of the patient, or of later complication, without mention of misadventure at the time of the procedure; Z86.16 Personal history of COVID-19; Z86.73 Personal history of transient ischemic attack (TIA), and cerebral infarction without residual deficits; Z87.891 Personal history of nicotine dependence; Z79.82 Long term (current) use of aspirin; Z79.899 Other long term (current) drug therapy; Z91.048 Other nonmedicinal substance allergy status; Z95.0 Presence of cardiac pacemaker; Z90.49 Acquired absence of other specified parts of digestive tract; Z86.19 Personal history of other infectious and parasitic diseases
CPT/HCPCS: 36415; 71045; 71275; 80053; 80306; 80307; 81001; 82607; 82746; 83735; 84100; 84443; 85025; 85027; 85610; 85730; 86340; 86850; 86900; 86901; 87040; 87081; A4306; C1713; C1776; J0690; J0696; J1885; J2250; J2405; J2704; J2795; J3010; J3370; J3420; J3475; J3490; J7050; S0020; U0003; U0005

== ENCOUNTER 2021-12-08 10:30 | Outpatient (CLI) | payer MEDICARE | END 2021-12-08 10:31 | disposition home or self-care (01) | LOC: BICCT 10:30 | PROVIDERS: ATTEND Orthopaedic Surgery | DX: M25.551 Pain in right hip (principal); M47.816 Spondylosis without myelopathy or radiculopathy, lumbar region; M43.16 Spondylolisthesis, lumbar region; M43.17 Spondylolisthesis, lumbosacral region; M48.061 Spinal stenosis, lumbar region without neurogenic claudication; D25.9 Leiomyoma of uterus, unspecified; K57.30 Diverticulosis of large intestine without perforation or abscess without bleeding | CPT/HCPCS: 72192 ==

== ENCOUNTER 2021-12-18 13:47 | Outpatient (CLI) | payer MEDICARE | END 2021-12-18 13:48 | disposition home or self-care (01) | LOC: BICCT 13:47 | PROVIDERS: ATTEND Orthopaedic Surgery | DX: M48.061 Spinal stenosis, lumbar region without neurogenic claudication (principal); M47.816 Spondylosis without myelopathy or radiculopathy, lumbar region; R29.898 Other symptoms and signs involving the musculoskeletal system; M25.551 Pain in right hip | CPT/HCPCS: 72131 ==